=== PATIENT | female | born 1950 | race Caucasian/White ===

== ENCOUNTER 2022-11-07 00:24 | Inpatient (IN) | payer MEDICARE, BC, SELFPAY ==
[2022-11-07] VITALS (332 sets, daily range): BP systolic 97–165; BP diastolic 31–124; PULSE 56–113; RESP 7–26; TEMP 35.8–36.9; O2SAT 90–100; BMI 26.6
--- NOTE | 2022-11-07 00:29 | ED.GENADUL_ITS ---
Discharge Plan Disposition Patient Disposition: Admit to [facility] Condition: Stable Discharge Details Clinical Impression: Left femoral shaft fracture Admit Date/Time: 11/07/22 17:36 Admit Provider: José Luis Gaxiola Attending Provider: José Luis Gaxiola Primary Care Provider: Delaney Apple ED Provider: Rachel Benedict Discharge Data Discharge Date/Time-TO BE ENTERED AT DEPARTURE: 11/07/22 15:01 Medical Decision Making 72-year-old female with history of osteoporosis, Metzger's esophagus, asthma who uses a walker for ambulation at home presents with sudden onset of left thigh pain with concern for fracture while walking and turning to the side with her walker at home at 10 PM last night. Vitals within normal limits. Patient has significant tenderness and edema noted to her left mid thigh and severe pain in her left thigh with any movement. She is in a traction splint. Her distal pulses are intact. There are no obvious open wounds. Her chest and abdomen are nontender. No evidence of head trauma. Moving all other extremities without pain or deformity. Will refer for left hip and pelvis, femur, knee and tib-fib x-rays. Imaging reviewed. She has a displaced mid left femur fracture. Case discussed and imaging reviewed with Dr. Justin who notes that this is likely a fracture in the setting of osteoporosis similar to a classic bisphosphonate fracture. Recommends removal of the traction splint here and place patient in Rahman's traction which I did at bedside and pt tolerated well. Dr. Justin likely can take patient to the OR later today. Discussed with nursing fiber optics supervisor and there are currently no beds available here and no beds available at [facility]. Discussed with community integration specialist and there are no beds available at [facility] or [facility]. Plan to admit patient here and board in the ER once bed available. Case discussed with hospitalist who accepts pt for admission. Medical Records Medical records reviewed: Yes I reviewed the patient's medical records. Imaging Data Radiologic Study: Radiologist's impression: XR Left Hip Exam date and time: 11/07/2022 1:27 AM Age: 72 years old Clinical indication: Injury or trauma; Blunt trauma (contusions or hematomas); Left; Hip; Injury details: S/P fall, R/O FX TECHNIQUE: Imaging protocol: Radiologic exam of the Left hip. Views: 2 or 3 views hip with pelvis when performed. COMPARISON: No relevant prior studies available. FINDINGS: Bones/joints: Acute, angulated, displaced transverse fracture through proximal shaft of the femur. No subluxation. Intramedullary adonis right femur. Degenerative changes of visualized spine Soft tissues: Unremarkable. IMPRESSION: Acute fracture of left femur. ?XR Left Femur Exam date and time: 11/07/2022 1:29 AM Age: 72 years old Clinical indication: Injury or trauma; Fall; Work related; Blunt trauma; Thigh or upper leg; Left; Additional info: S/P fall, R/O FX TECHNIQUE: Imaging protocol: Radiologic exam of the Left femur. Views: 2 views. COMPARISON: CR XR HIP LT COMPLETE AP PELVIS 11/07/2022 1:27 AM FINDINGS: Bones/joints: Acute, displaced angulated transverse fracture through proximal shaft of the femur. Hip and knee joints maintained. Soft tissues: Unremarkable. IMPRESSION: Acute fracture of the femur. XR Left Knee Exam date and time: 11/07/2022 1:30 AM Age: 72 years old Clinical indication: Injury or trauma; Fall; Blunt trauma; Knee; Left; Additional info: S/P fall, R/O FX TECHNIQUE: Imaging protocol: Radiologic exam of the Left knee. Views: 1 or 2 views. COMPARISON: CR XR FEMUR LT 11/07/2022 1:29 AM FINDINGS: Bones/joints: No fracture or subluxation. Soft tissues: Normal. IMPRESSION: No fracture or subluxation. XR Left Tibia and Fibula Exam date and time: 11/07/2022 1:32 AM Age: 72 years old Clinical indication: Injury or trauma; Fall; Work related; Blunt trauma; Knee; Left; Additional info: S/P fall, R/O FX TECHNIQUE: Imaging protocol: Radiologic exam of the Left tibia and fibula. Views: 2 views. COMPARISON: CR XR KNEE LT 3V AP,LAT,GURJIT 11/07/2022 1:30 AM, concurrent x-ray study of the left femur. FINDINGS: Bones/joints: No acute fracture or subluxation. Knee and ankle joints are maintained. Soft tissues: Normal. IMPRESSION: No acute fracture or subluxation. XR Chest Exam date and time: 11/07/2022 1:39 AM Age: 72 years old Clinical indication: Injury or trauma; Fall; Blunt trauma (contusions or hematomas); Additional info: Left femur FX, pre-op, R/O acute disease TECHNIQUE: Imaging protocol: Radiologic exam of the chest. Views: 1 view. COMPARISON: No relevant prior studies available. FINDINGS: Lungs: Unremarkable. No consolidation. Pleural spaces: Unremarkable. No pleural effusion. No pneumothorax. Heart/Mediastinum: Cardiomegaly. Bones/joints: Moderate convex right scoliosis of thoracolumbar spine. Multilevel degenerative changes. IMPRESSION: Cardiomegaly. Lab Data Lab results reviewed: Yes I reviewed the patient's lab results. Labs: Laboratory Tests Range/Units 11/07/22 11/07/22 11/07/22 04:05 04:05 04:05 WBC (4.4-10.8) 10^3/uL 11.78 H RBC (3.93-5.22) 10^6/uL 3.69 L Hgb (11.2-15.7) g/dL 11.6 Hct (36.0-46.0) % 35.8 L MCV (80-95) fL 97 H MCH (27.0-33.0) pg 31.4 MCHC (32.0-36.0) % 32.4 RDW (11.7-14.6) % 13.2 Plt Count (130-400) 10^3/uL 249 MPV (8.0-11.0) fL 10.6 Immature Gran % 0.3 Neutrophils % 82.3 Lymphocytes % 10.8 Monocytes % 5.0 Eosinophils % 1.2 Basophils % 0.4 Nucleated RBC % (0.0-0.3) % 0.0 Absolute Neutrophils (1.2-6.7) 10^3/uL 9.69 H Absolute Lymphocytes (1.2-3.4) 10^3/uL 1.27 Absolute Monocytes (0.1-0.8) 10^3/uL 0.59 Absolute Eosinophils (0.0-0.7) 10^3/uL 0.14 Absolute Basophils (0.0-0.2) 10^3/uL 0.05 Sodium (136-145) mmol/L 138 Potassium (3.5-5.1) mmol/L 4.0 Chloride (98-107) mmol/L 105 Carbon Dioxide (21.0-32.0) mmol/L 26.7 Anion Gap (3-11) mmol/L 6.3 BUN (7-18) mg/dL 30 H Creatinine (0.55-1.02) mg/dL 1.1 H Est GFR (CKD-EPI 2020) (mL/min/1.73m2) 52.73 Glucose (74-106) mg/dL 151 H Calcium (8.5-10.1) mg/dL 8.8 Total Bilirubin (0.2-1.0) mg/dL 0.2 AST (15-37) U/L 19 ALT (14-59) U/L 25 Alkaline Phosphatase (46-116) U/L 58 Total Protein (6.4-8.2) g/dL 6.3 L Albumin (3.4-5.0) g/dL 3.2 L COVID-19 Source Nasal/Nares SARS-CoV-2 (PCR) (Negative) Negative ECG Data Attestation: I personally reviewed and interpreted this ECG (s) as follows: Interpretation: rate of 62, sinus, no stemi. HPI General Mode of arrival: ambulatory . Date/Time Provider Initiated Documentation: 11/07/22 00:29 . Limitations to Documentation: no limitations . Information obtained by: patient . HPI Narrative: Patient is a 72-year-old female with a history of osteoporosis, Metzger's esophagus, asthma who uses a walker at home for ambulation presents for left thigh pain with concern for femur fracture after she twisted while walking at 10 PM last night. Patient states she was walking in her bedroom when she turned around and felt an instant snap in her left thigh. She states she has nursing staff at home that was able to help her to the recliner. She denies head injury, chest pain, abdominal pain, neck pain, back pain or other extremity injury or pain. She states her pain is controlled after fentanyl per EMS. Patient states she has a history of right femur fracture with intramedullary adonis placement in 2005. Related Data Home Medications Medication Instructions Recorded Confirmed Calcium Magnesium + D 500 mg-250 1 ea PO 11/20/15 mg-200 unit tablet (calcium carb,[id number]) Daily Value (multivitamin) 1 ea PO DAILY 11/20/15 11/07/22 ProAir HFA 90 mcg/actuation 1 puff inhalation Q6H PRN 11/20/15 11/07/22 aerosol inhaler (albuterol sulfate) Qvar 40 mcg/actuation Metered 2 puff inhalation BID 11/20/15 11/07/22 Aerosol oral inhaler (beclomethasone dipropionate) Vitamin C 500 mg capsule,extended 500 mg PO DAILY ##2 11/20/15 11/07/22 release (ascorbic acid (vitamin C)) bupropion HCl 300 mg 24 hr tablet, 300 mg PO DAILY 11/20/15 11/07/22 extended release melatonin 10 mg tablet,extended 10 mg PO HS 11/20/15 11/07/22 release montelukast 10 mg tablet 10 mg PO DAILY 11/20/15 11/07/22 omeprazole 40 mg capsule,delayed 40 mg PO DAILY 11/20/15 11/07/22 release Cbd Oral Edibles PO DAILY 11/07/22 acetaminophen 500 mg tablet 1,000 mg PO BID 11/07/22 11/07/22 aspirin 81 mg tablet,delayed 81 mg PO DAILY 11/07/22 11/07/22 release denosumab 60 mg/mL subcutaneous 60 mg subcut 11/07/22 syringe (Prolia) ferrous gluconate 324 mg (37.5 mg 324 mg PO DAILY 11/07/22 11/07/22 iron) tablet gabapentin 600 mg tablet 600 mg PO QID 11/07/22 11/07/22 hyoscyamine sulfate 0.125 mg 0.125 mg PO PRN 11/07/22 sublingual tablet lisinopril 5 mg tablet 5 mg PO DAILY 11/07/22 11/07/22 lorazepam 0.5 mg tablet 0.5 mg PO 11/07/22 meloxicam 15 mg tablet 15 mg PO DAILY 11/07/22 11/07/22 methocarbamol 750 mg tablet 750 mg PO BID PRN 11/07/22 11/07/22 metoprolol succinate 25 mg 25 mg PO DAILY 11/07/22 11/07/22 tablet,extended release 24 hr oxybutynin chloride 5 mg tablet 5 mg PO DAILY 11/07/22 11/07/22 Allergies Allergy/AdvReac Type Severity Reaction Status Date / Time codeine Allergy Unverified 11/07/22 00:31 Tetracyclines Allergy Unverified 11/07/22 00:31 General Stated Complaint: Orthopedic MARIANNE: 3 Review of Systems All systems reviewed & are unremarkable except as noted in HPI and below Constitutional Constitutional: Reports as per HPI, Denies chills and Denies fever(s) Eyes Eyes: Denies blurry vision ENT Ears, Nose, Mouth, and Throat: Denies dizziness, Denies sore throat and Denies throat swelling Cardiovascular Cardiovascular: Denies chest pain and Denies dyspnea Respiratory Respiratory: Denies cough and Denies dyspnea Gastrointestinal Gastrointestinal: Denies abdominal pain, Denies diarrhea and Denies vomiting Genitourinary Genitourinary: Denies hematuria and Denies dysuria Musculoskeletal Musculoskeletal: Denies back pain and Denies numbness Comments: Left thigh and knee pain Integumentary/Breasts Skin/Breast: Denies lesions and Denies rash Neurologic Neurologic: Denies dizziness, Denies localized weakness and Denies numbness Allergic/Immunologic Allergic/Immunologic: Denies throat swelling PFSH All Active Problems (Updated 11/09/22 @ 16:56 by Abena Pederson NP) UTI (urinary tract infection) (Acute) Discharge planning issues (Acute) DVT prophylaxis (Acute) Left femoral shaft fracture (Acute 11/06/22) Medical History (Updated 11/09/22 @ 16:56 by Abena Pederson NP) Allergic rhinitis due to pollen (06/30/16) Asthma Barretts esophagus Diverticulosis Dysphagia HTN (hypertension) Insomnia Osteoporosis Surgical History Colonoscopy - MAC (08/19/17) 2007 EGD - IV Sedation intramedulary nail right femoral bone Family History Other Essential hypertension Stroke Social History Smoking/Tobacco Use Status: Never Smoking risk assessment performed?: Yes Alcohol Intake: never Substance use type: does not use Exam Const General: cooperative and uncomfortable Orientation: alert, awake and oriented x3 HENMT Head: normal to inspection Eyes General: appearance normal, both eyes and all related structures Pupils: PERRL EOM: EOM intact bilaterally Neck Neck: normal visual inspection and No submandibular swelling Lymphatic: no lymphadenopathy noted Chest Chest: normal inspection of the chest, normal palpation of entire chest wall and no tenderness Resp Effort & Inspection: normal respiratory effort and able to speak in complete sentences Auscultation: clear to auscultation bilaterally Cardio Rate: regular rate Rhythm: regular rhythm GI Inspection: normal to inspection Palpation: soft, not firm, not rigid and nontender Auscultation: hypoactive bowel sounds Skin General skin exam: no rashes or lesions noted Neuro General: patient alert, patient awake and patient oriented x3 Cognition: normal cognition Speech: speech normal Motor: muscle tone normal throughout Sensory Exam: no sensory deficits noted Extrem Other: Left lower extremity in traction splint. She has significant tenderness and edema noted to the left mid thigh and severe pain in her left thigh with any movement. There are no obvious open wounds noted. Left knee, tib-fib and lower leg appears normal to inspection. Left ankle and foot nontender. Left DP pulse intact. No pain with anterior posterior compression of bilateral hips. No pain with range of motion in bilateral upper extremities. Psych Appearance: grossly normal Mental Status: mental status grossly normal Speech and Movement: speech and movement normal Affect: normal affect Procedures Orthopedic Splinting/Casting Injury #1: Side: left Lower Extremity Injury Location: upper leg Other Orthopedic Equipment: other (stockingette placed on left lower leg and wrapped in coban. The excess stockingette off the distal end of the foot was then tied to a 5 lb weight hanging over the distal end of the bed. )
--- NOTE | 2022-11-07 01:00 | DI.RAD_ITS ---
Exam(s) XR TIB/FIB LT XR KNEE LT 2V AP,LAT EXAM: XR KNEE LT 2V AP,LAT CLINICAL HISTORY: s/p fall with twisting injury, r/o fx. TECHNIQUE: 2D digital imaging was performed. AP and lateral views COMPARISON: CR,XR XR TIB/FIB LT from 11/07/2022 CR,XR XR FEMUR LT from 11/07/2022 FINDINGS: BONES: No acute fracture is present. No bony destructive lesion is seen. JOINTS: Degenerative changes lateral femoral tibial joint. The knee is normally aligned. No joint ef fusion is seen. Ankle joint is unremarkable. SOFT TISSUE: Normal. IMPRESSION: Normal radiographs of the left knee and lower leg.. DATA REPOSITORY: RADIATION DOSE DELIVERED:
--- NOTE | 2022-11-07 01:00 | DI.RAD_ITS ---
Exam(s) XR HIP LT COMPLETE AP PELVIS XR FEMUR LT EXAM: XR HIP LT COMPLETE AP PELVIS INDICATION: s/p fall, r/o acute fx. COMPARISON: CR,XR XR FEMUR LT from 11/07/2022 TECHNIQUE: 2D digital imaging was performed. Three views. FINDINGS: There is a fracture seen extending transversely through the upper shaft of the femur, well below the lesser trochanter. There is a full shaft with displacement as well as severe angulation. The hip shelley int and pelvis appear intact. An intramedullary adonis is noted in the right femur. No additional frac tures are seen distally in the femur. The knee is unremarkable. IMPRESSION: Displaced and angulated fracture of the proximal shaft of the left femur. DATA REPOSITORY: RADIATION DOSE DELIVERED:
--- NOTE | 2022-11-07 01:30 | DI.RAD_ITS ---
Exam(s) XR CHEST 1V IN DI DEPT EXAM: XR CHEST 1V IN DI DEPT CLINICAL HISTORY: left femur fx, pre-op, r/o acute disease TECHNIQUE: 2D digital imaging was performed. COMPARISON: No exams were available for comparison FINDINGS: Leads overlie the chest. Exam limited by rotation. LUNGS: Grossly clear. No pleural abnormality seen. HEART: Enlarged. The left lower lobe is partially obscured by cardiac silhouette.. AORTA: Normal diameter. Calcification at arch. BONES: Prominent dextroscoliosis. Soft tissues: Unremarkable. IMPRESSION: Cardiomegaly. No acute findings. DATA REPOSITORY: RADIATION DOSE DELIVERED:
--- NOTE | 2022-11-07 01:30 | RT.EKG_ITS ---
APPROVED REPORT Exam: Resting ECG Reason for Exam: pre-op Patient Location: E HR:62 bpm ECG Measurements Heart Rate 62 AXIS UT 165 P 63 QRSd 90 QRS -48 QT 443 T 43 QTc 449 Conclusion Sinus rhythm...normal P axis, V-rate 60- 99 Probable left atrial enlargement...P >50mS, <-0.10mV V1 Left anterior fascicular block...axis(240,-40), init forces inf. Sinus. No STEMI. I have reviewed and interpreted ECG and agree with software generated interpretation.
[2022-11-07] MEDS: fentaNYL 100 MCG/2 ML VIAL 50 MCG IVP ×2 (01:45→11:41)
[2022-11-07] MEDS: fentaNYL 100 MCG/2 ML VIAL (02:00)
[2022-11-07] MEDS: diazePAM 10 MG/2 ML SYR 2 MG IVP (03:05)
--- NOTE | 2022-11-07 04:09 | DI.VRAD_ITS ---
PROCEDURE INFORMATION: Exam: XR Left Hip Exam date and time: 11/07/2022 1:27 AM Age: 72 years old Clinical indication: Injury or trauma; Blunt trauma (contusions or hematomas); Left; Hip; Injury details: S/P fall, R/O FX TECHNIQUE: Imaging protocol: Radiologic exam of the Left hip. Views: 2 or 3 views hip with pelvis when performed. COMPARISON: No relevant prior studies available. FINDINGS: Bones/joints: Acute, angulated, displaced transverse fracture through proximal shaft of the femur. No subluxation. Intramedullary adonis right femur. Degenerative changes of visualized spine Soft tissues: Unremarkable. IMPRESSION: Acute fracture of left femur. Dictated and Authenticated by: Cale Rhodes MD. Ordering:CLIFTON Ramos MD
[2022-11-07 04:14] LABS: Source Nasal/Nares
--- NOTE | 2022-11-07 04:15 | DI.VRAD_ITS ---
PROCEDURE INFORMATION: Exam: XR Left Femur Exam date and time: 11/07/2022 1:29 AM Age: 72 years old Clinical indication: Injury or trauma; Fall; Work related; Blunt trauma; Thigh or upper leg; Left; Additional info: S/P fall, R/O FX TECHNIQUE: Imaging protocol: Radiologic exam of the Left femur. Views: 2 views. COMPARISON: CR XR HIP LT COMPLETE AP PELVIS 11/07/2022 1:27 AM FINDINGS: Bones/joints: Acute, displaced angulated transverse fracture through proximal shaft of the femur. Hip and knee joints maintained. Soft tissues: Unremarkable. IMPRESSION: Acute fracture of the femur. Dictated and Authenticated by: Cale Rhodes MD. Ordering:CLIFTON Ramos MD
[2022-11-07 04:16] LABS: Abs Immature Grans 0.03 10^3/uL (0.0-0.06); Absolute Basophil Count 0.05 10^3/uL (0.0-0.2); Absolute Eosinophil Count 0.14 10^3/uL (0.0-0.7); Absolute Lymphocyte Count 1.27 10^3/uL (1.2-3.4); Absolute Monocyte Count 0.59 10^3/uL (0.1-0.8); Basophils % 0.4; Eosinophils % 1.2; HCT 35.8 % (36.0-46.0); HGB 11.6 g/dL (11.2-15.7); Immature Grans % 0.3; Lymphocytes % 10.8; MCH 31.4 pg (27.0-33.0); MCHC 32.4 % (32.0-36.0); MCV 97 fL (80-95); MPV 10.6 fL (8.0-11.0); Neutrophils % 82.3; Platelet Count 249 10^3/uL (130-400); RBC 3.69 10^6/uL (3.93-5.22); RDW 13.2 % (11.7-14.6); RDW-SD 46.7 fL; WBC 11.78 10^3/uL (4.4-10.8)
--- NOTE | 2022-11-07 04:16 | DI.VRAD_ITS ---
PROCEDURE INFORMATION: Exam: XR Left Knee Exam date and time: 11/07/2022 1:30 AM Age: 72 years old Clinical indication: Injury or trauma; Fall; Blunt trauma; Knee; Left; Additional info: S/P fall, R/O FX TECHNIQUE: Imaging protocol: Radiologic exam of the Left knee. Views: 1 or 2 views. COMPARISON: CR XR FEMUR LT 11/07/2022 1:29 AM FINDINGS: Bones/joints: No fracture or subluxation. Soft tissues: Normal. IMPRESSION: No fracture or subluxation. Dictated and Authenticated by: Cale Rhodes MD. Ordering:CLIFTON Ramos MD
--- NOTE | 2022-11-07 04:17 | DI.VRAD_ITS ---
PROCEDURE INFORMATION: Exam: XR Left Tibia and Fibula Exam date and time: 11/07/2022 1:32 AM Age: 72 years old Clinical indication: Injury or trauma; Fall; Work related; Blunt trauma; Knee; Left; Additional info: S/P fall, R/O FX TECHNIQUE: Imaging protocol: Radiologic exam of the Left tibia and fibula. Views: 2 views. COMPARISON: CR XR KNEE LT 3V AP,LAT,GURJIT 11/07/2022 1:30 AM, concurrent x-ray study of the left femur. FINDINGS: Bones/joints: No acute fracture or subluxation. Knee and ankle joints are maintained. Soft tissues: Normal. IMPRESSION: No acute fracture or subluxation. Dictated and Authenticated by: Cale Rhodes MD. Ordering:CLIFTON Ramos MD
--- NOTE | 2022-11-07 04:19 | DI.VRAD_ITS ---
PROCEDURE INFORMATION: Exam: XR Chest Exam date and time: 11/07/2022 1:39 AM Age: 72 years old Clinical indication: Injury or trauma; Fall; Blunt trauma (contusions or hematomas); Additional info: Left femur FX, pre-op, R/O acute disease TECHNIQUE: Imaging protocol: Radiologic exam of the chest. Views: 1 view. COMPARISON: No relevant prior studies available. FINDINGS: Lungs: Unremarkable. No consolidation. Pleural spaces: Unremarkable. No pleural effusion. No pneumothorax. Heart/Mediastinum: Cardiomegaly. Bones/joints: Moderate convex right scoliosis of thoracolumbar spine. Multilevel degenerative changes. IMPRESSION: Cardiomegaly. Dictated and Authenticated by: Cale Rhodes MD. Ordering:CLIFTON Ramos MD
[2022-11-07 04:24] LABS: Absolute Neutrophil Count 9.69 10^3/uL (1.2-6.7)
[2022-11-07 04:32] LABS: ALT 25 U/L (14-59); AST 19 U/L (15-37); Albumin 3.2 g/dL (3.4-5.0); Alkaline Phosphatase 58 U/L (46-116); Anion Gap 6.3 mmol/L (3-11); BUN 30 mg/dL (7-18); Bilirubin, Total 0.2 mg/dL (0.2-1.0); CO2 26.7 mmol/L (21.0-32.0); CREATININE 1.1 mg/dL (0.55-1.02); Calcium 8.8 mg/dL (8.5-10.1); Chloride 105 mmol/L (98-107); Estimated GFR 52.73 (mL/min/1.73m2); Glucose 151 mg/dL (74-106); Sodium 138 mmol/L (136-145); Total Protein 6.3 g/dL (6.4-8.2)
[2022-11-07 04:53] LABS: COVID-19 PCR Negative (Negative)
--- NOTE | 2022-11-07 05:50 | W.PM.HP.N ---
Date of service: 11/07/22 Time of Service: 05:50 Assessment and Plan Assessment and plan (1) Left femoral shaft fracture: Start date: 11/07/22 Status: Acute Assessment and plan: This is 72-year-old lady who had a spontaneous fracture left proximal femur shaft with previous right femur shaft fracture with adonis in place. She has severe osteoporosis. She will be kept him n.p.o. with pain management and Rahman's traction awaiting surgical repair with Dr. Justin consulted. She is a full code. (2) HTN (hypertension): Assessment and plan: This appears stable with patient on lisinopril and metoprolol at home. She will not receive lisinopril and metoprolol will be in split dosing slightly increase if needed perioperatively. She will hold her aspirin. (3) Osteoporosis: Assessment and plan: Severe with spontaneous fractures on Prolia. History of Present Illness History of Present Illness Chief Complaint: Left thigh pain after turning with walking Narrative: This is a 72-year-old female patient with a history of osteoporosis on Prolia injections as well as asthma on inhalers and hypertension on blood pressure medications. She has severe pain with DJD and was walking with a walker when she turned and felt a snap in her left thigh and then saw her leg moving independently from the upper thigh. She had an attendant who helped her get comfortable and she came to the ED for evaluation being found to have a mid left femur shaft fracture. She had had this happen before on her other leg. There was no fall or injury. In the ED the patient was evaluated with no other fractures of the left lower extremity and Dr. Justin was consulted advising Rahman's traction with patient having a Bernstein catheter in place and being kept comfortable with IV fentanyl. At the time I saw the patient she was comfortable and making a phone call on her cell phone. She usually goes to [facility] but that hospital was on diversion prompting transfer to [facility]. She is a full code. Review of Systems Narrative: 13 point review of systems otherwise unrevealing or stable. PFSH All Active Problems (Updated 11/07/22 @ 06:43 by José Luis Gaxiola) Left femoral shaft fracture (Acute) Medical History (Updated 11/07/22 @ 06:43 by José Luis Gaxiola) Asthma Barretts esophagus Diverticulosis Dysphagia HTN (hypertension) Insomnia Osteoporosis Surgical History Colonoscopy - MAC (08/19/17) 2006 EGD - IV Sedation intramedulary nail right femoral bone Family History Other Essential hypertension Stroke Social History Smoking/Tobacco Use Status: Never Smoking risk assessment performed?: Yes Alcohol Intake: never Substance use type: does not use Meds Allergies and Home Medications Allergies Allergy/AdvReac Type Severity Reaction Status Date / Time codeine Allergy Unverified 11/07/22 00:31 Tetracyclines Allergy Unverified 11/07/22 00:31 Home Medications Medication Instructions Recorded Confirmed Type Calcium Magnesium + D 500 mg-250 1 ea PO 11/20/15 History mg-200 unit tablet (calcium carb,[id number] D3) Daily Value (multivitamin) 1 ea PO DAILY 11/20/15 11/07/22 History ProAir HFA 90 mcg/actuation 1 puff inhalation Q6H PRN 11/20/15 11/07/22 History aerosol inhaler (albuterol sulfate) Qvar 40 mcg/actuation Metered 2 puff inhalation BID 11/20/15 11/07/22 History Aerosol oral inhaler (beclomethasone dipropionate) Vitamin C 500 mg capsule,extended 500 mg PO DAILY ##2 11/20/15 11/07/22 History release (ascorbic acid (vitamin C)) bupropion HCl 300 mg 24 hr tablet, 300 mg PO DAILY 11/20/15 11/07/22 History extended release melatonin 10 mg tablet,extended 10 mg PO HS 11/20/15 11/07/22 History release montelukast 10 mg tablet 10 mg PO DAILY 11/20/15 11/07/22 History omeprazole 40 mg capsule,delayed 40 mg PO DAILY 11/20/15 11/07/22 History release Cbd Oral Edibles PO DAILY 11/07/22 History acetaminophen 500 mg tablet 1,000 mg PO BID 11/07/22 11/07/22 History aspirin 81 mg tablet,delayed 81 mg PO DAILY 11/07/22 11/07/22 History release denosumab 60 mg/mL subcutaneous 60 mg subcut 11/07/22 History syringe (Prolia) ferrous gluconate 324 mg (37.5 mg 324 mg PO DAILY 11/07/22 11/07/22 History iron) tablet gabapentin 600 mg tablet 600 mg PO QID 11/07/22 11/07/22 History hyoscyamine sulfate 0.125 mg 0.125 mg PO PRN 11/07/22 History sublingual tablet lisinopril 5 mg tablet 5 mg PO DAILY 11/07/22 11/07/22 History lorazepam 0.5 mg tablet 0.5 mg PO 11/07/22 History meloxicam 15 mg tablet 15 mg PO DAILY 11/07/22 11/07/22 History methocarbamol 750 mg tablet 750 mg PO BID PRN 11/07/22 11/07/22 History metoprolol succinate 25 mg 25 mg PO DAILY 11/07/22 11/07/22 History tablet,extended release 24 hr oxybutynin chloride 5 mg tablet 5 mg PO DAILY 11/07/22 11/07/22 History Exam Narrative Exam Narrative: General: Patient appears appropriate for age, alert and oriented x3 and in no acute distress. She is comfortable lying flat in bed in Rahman's traction. HEENT: Normocephalic, eyes with pupils equal reactive light symmetrically, extraocular movement intact and sclera anicteric. Oropharynx with moist mucosa and good dentition. Neck: Supple without JVD. Back: Not examined with patient supine. Lungs: Clear to auscultation and percussion with anterior evans auscultated. Breast: Exam deferred. Heart: Irregular rhythm with normal rate, frequent extrasystole. 3-6 systolic murmur left sternal border. Abdomen: Slightly obese contour, soft and nontender to palpation with no palpable hepatosplenomegaly. Bowel sounds positive all quadrants. Genitalia/rectal: Exam deferred. Patient has Bernstein catheter in place. Extremities: Without clubbing, cyanosis or pitting edema. Left thigh is tender with movement and is in Rahman's traction. Peripheral pulses intact with good cap refill. Skin: Normal color, warm and dry. Neuro: Cranial nerves II through XII gross intact, no focalized motor deficits. No tremor. Psych: Normal affect and mood. No abnormal thought processes. Remote and recent memory intact. Results Imaging Imaging Studies: Exam: XR Left Hip Exam date and time: 11/07/2022 1:27 AM Age: 72 years old Clinical indication: Injury or trauma; Blunt trauma (contusions or hematomas); Left; Hip; Injury details: S/P fall, R/O FX TECHNIQUE: Imaging protocol: Radiologic exam of the Left hip. Views: 2 or 3 views hip with pelvis when performed. COMPARISON: No relevant prior studies available. FINDINGS: Bones/joints: Acute, angulated, displaced transverse fracture through proximal shaft of the femur. No subluxation. Intramedullary adonis right femur. Degenerative changes of visualized spine Soft tissues: Unremarkable. IMPRESSION: Acute fracture of left femur. Exam: XR Left Femur Exam date and time: 11/07/2022 1:29 AM Age: 72 years old Clinical indication: Injury or trauma; Fall; Work related; Blunt trauma; Thigh or upper leg; Left; Additional info: S/P fall, R/O FX TECHNIQUE: Imaging protocol: Radiologic exam of the Left femur. Views: 2 views. COMPARISON: CR XR HIP LT COMPLETE AP PELVIS 11/07/2022 1:27 AM FINDINGS: Bones/joints: Acute, displaced angulated transverse fracture through proximal shaft of the femur. Hip and knee joints maintained. Soft tissues: Unremarkable. IMPRESSION: Acute fracture of the femur. Exam: XR Left Knee Exam date and time: 11/07/2022 1:30 AM Age: 72 years old Clinical indication: Injury or trauma; Fall; Blunt trauma; Knee; Left; Additional info: S/P fall, R/O FX TECHNIQUE: Imaging protocol: Radiologic exam of the Left knee. Views: 1 or 2 views. COMPARISON: CR XR FEMUR LT 11/07/2022 1:29 AM FINDINGS: Bones/joints: No fracture or subluxation. Soft tissues: Normal. IMPRESSION: No fracture or subluxation. Exam: XR Left Tibia and Fibula Exam date and time: 11/07/2022 1:32 AM Age: 72 years old Clinical indication: Injury or trauma; Fall; Work related; Blunt trauma; Knee; Left; Additional info: S/P fall, R/O FX TECHNIQUE: Imaging protocol: Radiologic exam of the Left tibia and fibula. Views: 2 views. COMPARISON: CR XR KNEE LT 3V AP,LAT,GURJIT 11/07/2022 1:30 AM, concurrent x-ray study of the left femur. FINDINGS: Bones/joints: No acute fracture or subluxation. Knee and ankle joints are maintained. Soft tissues: Normal. IMPRESSION: No acute fracture or subluxation. Exam: XR Chest Exam date and time: 11/07/2022 1:39 AM Age: 72 years old Clinical indication: Injury or trauma; Fall; Blunt trauma (contusions or hematomas); Additional info: Left femur FX, pre-op, R/O acute disease TECHNIQUE: Imaging protocol: Radiologic exam of the chest. Views: 1 view. COMPARISON: No relevant prior studies available. FINDINGS: Lungs: Unremarkable. No consolidation. Pleural spaces: Unremarkable. No pleural effusion. No pneumothorax. Heart/Mediastinum: Cardiomegaly. Bones/joints: Moderate convex right scoliosis of thoracolumbar spine. Multilevel degenerative changes. IMPRESSION: Cardiomegaly. Labs Result diagrams: 11/07/22 04:05 11/07/22 04:05 Labs: Laboratory Results - last 24 hr 11/07/22 11/07/22 11/07/22 04:05 04:05 04:05 WBC 11.78 H RBC 3.69 L Hgb 11.6 Hct 35.8 L MCV 97 H MCH 31.4 MCHC 32.4 RDW 13.2 Plt Count 249 MPV 10.6 Immature Gran % 0.3 Neutrophils % 82.3 Lymphocytes % 10.8 Monocytes % 5.0 Eosinophils % 1.2 Basophils % 0.4 Nucleated RBC % 0.0 Absolute Neutrophils 9.69 H Absolute Lymphocytes 1.27 Absolute Monocytes 0.59 Absolute Eosinophils 0.14 Absolute Basophils 0.05 Sodium 138 Potassium 4.0 Chloride 105 Carbon Dioxide 26.7 Anion Gap 6.3 BUN 30 H Creatinine 1.1 H Est GFR (CKD-EPI 2020) 52.73 Glucose 151 H Calcium 8.8 Total Bilirubin 0.2 AST 19 ALT 25 Alkaline Phosphatase 58 Total Protein 6.3 L Albumin 3.2 L COVID-19 Source Nasal/Nares SARS-CoV-2 (PCR) Negative Last Vital Signs Temp 36.6 C 11/07/22 00:24 Pulse 80 11/07/22 05:32 Resp 15 11/07/22 05:45 BP 126/43 L 11/07/22 05:32 Pulse Ox 93 11/07/22 05:45 Time Spent Time spent with Patient: 55-74 minutes Time was spent: preparing to see the patient(eg.review tests), obtaining and/or reviewing separately otained hiistory, ordering medications,tests, procedures, referring, communicating with other health foster care therapist, indepentently interpreting results and care coordination
--- NOTE | 2022-11-07 06:59 | NUR.NOTE ---
@ 0300 Traction placed on by Dr. Benedict, 5 pounds @ Resting quietly.@ 0600 Resting quietly,denies needs
--- NOTE | 2022-11-07 09:44 | W.ANESPRE ---
General Info Date of Service Date Performed: 11/07/22 Height: 5 ft 1 in Weight: 63.957 kg Body Mass Index (BMI): 26.6 Surgical Procedure: Operation Date: 11/07/22 13:55 Proposed Procedure Side Surgeon p Femur IM Nailing, Antergrade Left Uziel Justin MD Meds Allergies and Home Medications Allergies Allergy/AdvReac Type Severity Reaction Status Date / Time codeine Allergy Unverified 11/07/22 00:31 Tetracyclines Allergy Unverified 11/07/22 00:31 Home Medication Medication Instructions Recorded Calcium Magnesium + D 500 mg-250 1 ea PO 11/20/15 mg-200 unit tablet (calcium carb,[id number] D3) Daily Value (multivitamin) 1 ea PO DAILY 11/20/15 ProAir HFA 90 mcg/actuation 1 puff inhalation Q6H PRN 11/20/15 aerosol inhaler (albuterol sulfate) Qvar 40 mcg/actuation Metered 2 puff inhalation BID 11/20/15 Aerosol oral inhaler (beclomethasone dipropionate) Vitamin C 500 mg capsule,extended 500 mg PO DAILY ##2 11/20/15 release (ascorbic acid (vitamin C)) bupropion HCl 300 mg 24 hr tablet, 300 mg PO DAILY 11/20/15 extended release melatonin 10 mg tablet,extended 10 mg PO HS 11/20/15 release montelukast 10 mg tablet 10 mg PO DAILY 11/20/15 omeprazole 40 mg capsule,delayed 40 mg PO DAILY 11/20/15 release Cbd Oral Edibles PO DAILY 11/07/22 acetaminophen 500 mg tablet 1,000 mg PO BID 11/07/22 aspirin 81 mg tablet,delayed 81 mg PO DAILY 11/07/22 release denosumab 60 mg/mL subcutaneous 60 mg subcut 11/07/22 syringe (Prolia) ferrous gluconate 324 mg (37.5 mg 324 mg PO DAILY 11/07/22 iron) tablet gabapentin 600 mg tablet 600 mg PO QID 11/07/22 hyoscyamine sulfate 0.125 mg 0.125 mg PO PRN 11/07/22 sublingual tablet lisinopril 5 mg tablet 5 mg PO DAILY 11/07/22 lorazepam 0.5 mg tablet 0.5 mg PO 11/07/22 meloxicam 15 mg tablet 15 mg PO DAILY 11/07/22 methocarbamol 750 mg tablet 750 mg PO BID PRN 11/07/22 metoprolol succinate 25 mg 25 mg PO DAILY 11/07/22 tablet,extended release 24 hr oxybutynin chloride 5 mg tablet 5 mg PO DAILY 11/07/22 Current Visit Medications: Current Medications Generic Name Dose Route Start Last Admin Trade Name Freq PRN Reason Stop Dose Admin Acetaminophen 0 mg 11/07/22 05:50 Acetaminophen 325 Mg Tab PO Q4H PRN PRN Al Hydrox/Mg Hydrox/Simethicone 30 ml 11/07/22 05:50 Mylanta Suspension 30 Ml Cup PO Q2H PRN PRN Albuterol Sulfate 1 puff 11/07/22 06:00 Albuterol Hfa 8 Gm 60 Puff Inh IH Q6H PRN JAUN Device 1 each 11/07/22 06:00 Inhaler, Assist Device MC DIRECTED [facility] Dimethicone/Zinc Oxide 0 gm 11/07/22 05:50 Michael Protect Cream 142 Gm Tube TP PRN PRN Docusate Sodium 100 mg 11/07/22 05:50 Docusate Sodium 100 Mg Cap PO TID PRN PRN Fentanyl 50 mcg 11/07/22 03:39 Fentanyl 100 Mcg/2 Ml Vial IVP Q2H PRN PRN Gabapentin 600 mg 11/07/22 08:30 Gabapentin 600 Mg Tab PO QID [facility] Sodium Chloride 500 mls @ 0 mls/hr 11/07/22 03:37 Saline 500ml Bag IV PRN PRN As Directed Sodium Chloride 1,000 mls @ 125 mls/hr 11/07/22 06:00 Saline 1000ml Bag IV INFUSION [facility] Sodium Chloride 1,000 mls @ 150 mls/hr 11/07/22 07:15 Saline 1000ml Bag IV INFUSION [facility] IV Miscellaneous Supplies 1 each 11/07/22 03:45 Iv Access IV DIRECTED [facility] Magnesium Hydroxide 30 ml 11/07/22 05:50 Milk Of Magnesia 30 Ml Cup PO DAILY PRN PRN Meloxicam 15 mg 11/07/22 08:30 Meloxicam 15 Mg Tab PO DAILY [facility] Methocarbamol 750 mg 11/07/22 05:56 Methocarbamol 750 Mg Tab PO BID PRN PRN Metoprolol Tartrate 12.5 mg 11/07/22 06:00 11/07/22 06:30 Metoprolol 12.5 Mg Tab PO Not Given Q8H [facility] Montelukast Sodium 10 mg 11/07/22 08:30 Montelukast 10 Mg Tab PO DAILY [facility] Multivitamins 1 tab 11/07/22 08:30 Multivitamin Tab PO DAILY [facility] Non-Formulary Medication 500 mg 11/07/22 08:30 Ascorbic Acid (Vitamin C) [Vitamin C] PO DAILY [facility] Non-Formulary Medication 2 puff 11/07/22 08:30 Beclomethasone Dipropionate [Qvar] IH BID [facility] Non-Formulary Medication 300 mg 11/07/22 08:30 Bupropion Hcl PO DAILY JAUN Non-Formulary Medication 324 mg 11/07/22 08:30 Ferrous Gluconate PO DAILY [facility] Non-Formulary Medication 10 mg 11/07/22 22:00 Melatonin PO HS [facility] Non-Formulary Medication 40 mg 11/07/22 08:30 Omeprazole PO DAILY [facility] Ondansetron HCl 4 mg 11/07/22 03:37 Ondansetron 4 Mg/2 Ml Vial IVP Q4H PRN PRN Oxybutynin Chloride 5 mg 11/07/22 08:30 Oxybutynin 5 Mg Tab PO DAILY [facility] Polyethylene Glycol 17 gm 11/07/22 05:50 Polyethylene Glycol 3350 17 Gm Packet PO DAILY PRN PRN Constipation PFSH Active Problems Active Problems: Problem Status Onset Code Left femoral shaft fracture 11/06/22 S72.302A Medical History Medical History (Updated 11/07/22 @ 08:38 by Kita Regan) Allergic rhinitis due to pollen (06/30/16) Asthma Barretts esophagus Diverticulosis Dysphagia HTN (hypertension) Insomnia Osteoporosis Surgical History Surgical History Colonoscopy - MAC (08/19/17) 2006 EGD - IV Sedation intramedulary nail right femoral bone Tobacco Smoking/Tobacco Use Status: Never Alcohol Alcohol Intake: never Substance Use Substance use type: does not use Vital Signs and Lab Results Vital Signs Most Recent Vital Signs in EMR: Most Recent Vital Signs Temp Pulse Resp BP Pulse Ox 36.6 C 84 15 145/45 H 95 11/07/22 00:24 11/07/22 06:52 11/07/22 06:52 11/07/22 06:52 11/07/22 06:51 Lab Results Result Diagrams: 11/07/22 04:05 11/07/22 04:05 Blood Type / Crossmatch: No Data to Display Complete Blood Count: White Blood Count 11.78 10^3/uL (4.4-10.8) H 11/07/22 04:05 Red Blood Count 3.69 10^6/uL (3.93-5.22) L 11/07/22 04:05 Hemoglobin 11.6 g/dL (11.2-15.7) 11/07/22 04:05 Hematocrit 35.8 % (36.0-46.0) L 11/07/22 04:05 Platelet Count 249 10^3/uL (130-400) 11/07/22 04:05 Complete Metabolic Panel: Sodium 138 mmol/L (136-145) 11/07/22 04:05 Potassium 4.0 mmol/L (3.5-5.1) 11/07/22 04:05 Chloride 105 mmol/L (98-107) 11/07/22 04:05 Carbon Dioxide 26.7 mmol/L (21.0-32.0) 11/07/22 04:05 BUN 30 mg/dL (7-18) H 11/07/22 04:05 Creatinine 1.1 mg/dL (0.55-1.02) H 11/07/22 04:05 Est GFR (CKD-EPI 2020) 52.73 (mL/min/1.73m2) 11/07/22 04:05 Calcium 8.8 mg/dL (8.5-10.1) 11/07/22 04:05 Albumin 3.2 g/dL (3.4-5.0) L 11/07/22 04:05 Glucose 151 mg/dL (74-106) H 11/07/22 04:05 Liver Function Panel: Alanine Aminotransferase (ALT/SGPT) 25 U/L (14-59) 11/07/22 04:05 Aspartate Amino Transf (AST/SGOT) 19 U/L (15-37) 11/07/22 04:05 Coagulation Panel: No Data to Display Cardiac Panel: No Data to Display Arterial Blood Gas: No Data to Display Venous Blood Gas: No Data to Display Pancreas Panel: No Data to Display Thyroid Panel: No Data to Display Infectious Disease: Coronavirus (COVID-19)(PCR) Negative (Negative) 11/07/22 04:05 Coronavirus 2019 Source Nasal/Nares 11/07/22 04:05 Blood Cultures: No Data to Display Toxicology Panel: No Data to Display Imaging and Studies Imaging and Studies Study information below may be from another EMR and interpreted by another provider. Please see original notes in EMR for more complete details. EKG Summary: 11/07/22: sinus rhythm. Anesthesia Assessment and Plan Anesthesia History Personal History: No History of Anesthesia Complications and Other (sensitive. ) Family History: No Family History of Anesthesia Complications Exercise Tolerance Exercise Tolerance: Metabolic Equivalents>4 Cardiac & Pulmonary Exam Cardiac Exam: Heart Murmur Present (slight systolic murmur left sternal boarder. ) Pulmonary Exam: Clear Bilateral Breath Sounds Implantable Cardiac Device Does patient have a Pacemaker or an ICD?: No Airway Exam Known Difficult Airway: No Mallampati Class: 3 Mouth Opening: Narrow (< 3cm) Thyromental Distance: Greater than 3 cm Neck Range of Motion: Limited ROM Neck Circumference: Normal Teeth Condition: Normal Dentition ASA Classification ASA Score: ASA 3 Emergency Case?: Yes NPO Status NPO Status: NPO Clears >2 hours, Solids >8 hours Anesthesia Plan Resuscitation Status: Full Code Anesthesia Technique: General Anesthesia Airway Planned: Endotracheal Tube Monitors Used: Standard Monitors Preoperative Comments:: 72 yo female with femur fracture. Sig PMHx: HTN (lisinopril, metoprolol), asthma (twice daily inhaler use, occ rescue), dysphagia/GERD (omeprazole - not well controlled), former smoker, palpitations (had Holter, but no concerns per her), TIA x 3 (~ 2015, had vision changes, states unremarkable workup, only on 81 aspirin). Discussed risks, benefits, and alternatives of spinal vs GA. Would prefer GA. Plan: LATOYA, 2nd IV, +/- arterial line.
[2022-11-07] MEDS: Normal Saline 1,000 ML 150 ML IV (11:42)
--- NOTE | 2022-11-07 12:16 | NUR.NOTE ---
Nursing Note: Pt resting more comfortably after receiving pain medication. R knee re-positioned. Does not want to be moved otherwise. Traction on L leg/foot in place. Bernstein emptied. Pt denies any other needs.
[2022-11-07] MEDS: Albuterol HFA 8 GM 60 PUFF INH IH (12:48)
--- NOTE | 2022-11-07 13:15 | DI.RAD_ITS ---
Exam(s) XR FEMUR LT EXAM: XR FEMUR LT CLINICAL HISTORY: LEFT FEMORAL SHAFT FRACTURE. TECHNIQUE: 2D and realtime digital imaging was performed. COMPARISON: CR,XR XR FEMUR LT from 11/07/2022 FINDINGS: Fluoroscopy was provided in the OR. Hard copy images show placement of an intramedullary adonis in the femur for fracture fixation. The alignment is significantly improved from prior. Please see procedure note for details. Fluoro time: 2.44seconds RADIATION DOSE DELIVERED: jose Pacheco=10.92 mGy
--- NOTE | 2022-11-07 13:44 | W.ORTHOCONSU ---
History of Present Illness Narrative: Ms. Saul is a 72-year-old female with PMH of Metzger's esophagus, hypertension, PACs, asthma, significant osteoporosis treated with Prolia injections as well as history of right femur IM nail in 2005. Patient reports last evening around 10 PM she was walking around her home with a walker when she twisted and had immediate pain in the left leg. Patient does report left leg discomfort for several months which she has been starting to work-up with her typical orthopedic practice in [place], [place] and they are planning on obtaining an MRI if she continued to have left leg pain. Due to lack of beds at other hospitals patient was transferred to [facility] for surgical intervention. Patient does report history of cardiac murmur that she was told about years ago but denies any known recent cardiac imaging. Reports history of extra heart beat as well. Denies any cardiac symptoms and typically can function well. 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 Was completed at [facility] in [place], [place] in 2005. Assessment and Plan Assessment and plan (1) Left femoral shaft fracture: Status: Acute Assessment and plan: Plan: Reviewed her recent PCP note and imaging in detail. Reviewed x-rays with patient in detail. She denies any recent Covid-19 infection. Educated patient on surgery covering surgical technique, recovery process, benefits and risks including but not limited to risk of infection, blood clot, damage to soft tissue/blood vessels/nerves, fracture and risk of nonunion in detail. After discussion patient gives verbal understanding of risks and elects to proceed with scheduling surgery. Patient had opportunity to have questions answered to their satisfaction. They will contact office if issues arise. Patient will continue to be scheduled for left femur IM nail and associated procedures with Dr. Justin. Decision to proceed with surgery today left femur closed versus open reduction and intramedullary nailing. Increased risk of bone healing problem given delayed union on contralateral side after what sounds like similar atypical fracture. Increased right side hip thigh and leg pain that is difficult to examine given distracting pain on the left thigh. Will reevaluate after surgery. No obvious deformity or contralateral fractures. Probable increased risk of CVA given intramedullary reaming and prior TIAs. The risks, benefits, and alternatives were thoroughly discussed. Patient was counseled regarding pain management, expected postoperative course, and recovery timeline. All questions were answered. Informed consent was obtained. Patient agrees and understands the treatment plan. Review of Systems Cardiovascular Cardiovascular: Denies chest pain, Denies chest pain at rest, Denies chest pain with activity, Denies rapid heart rate, Denies irregular heart rhythm, Denies palpitations, Denies dyspnea, Denies dyspnea on exertion and Denies slow heart rate Respiratory Respiratory: Denies cough, Denies dyspnea, Denies dyspnea on exertion and Reports wheezing (reports had wheezing several months ago; has not had in recent weeks) Musculoskeletal Musculoskeletal: Denies numbness and Denies tingling Neurologic Neurologic: Denies numbness and Denies tingling Endocrine Endocrine: Denies palpitations Allergic/Immunologic Allergic/Immunologic: Reports wheezing (reports had wheezing several months ago; has not had in recent weeks) PFSH All Active Problems (Updated 11/07/22 @ 08:38 by Kita Regan) Left femoral shaft fracture (Acute 11/06/22) Medical History (Updated 11/07/22 @ 08:38 by Kita Regan) Allergic rhinitis due to pollen (06/30/16) Asthma Barretts esophagus Diverticulosis Dysphagia HTN (hypertension) Insomnia Osteoporosis Surgical History Colonoscopy - MAC (08/19/17) 2006 EGD - IV Sedation intramedulary nail right femoral bone Family History Other Essential hypertension Stroke Social History Smoking/Tobacco Use Status: Never Smoking risk assessment performed?: Yes Alcohol Intake: never Substance use type: does not use Exam Const General: cooperative, healthy appearing and comfortable Orientation: alert and awake Resp Effort & Inspection: normal respiratory effort, able to speak in complete sentences and no cough Cardio Pulses: radial pulses present bilaterally 2+ Extrem Other: Left lower extremity examination: Skin is intact without significant signs of ecchymosis, calor or abrasions. Sensation to light touch is intact along thigh. Lower leg is covered with stockinette and wrapped in coban for Rahman's traction which is in place. Results Last Vital Signs Temp 97.9 F 11/07/22 00:24 Pulse 84 11/07/22 06:52 Resp 15 11/07/22 06:52 BP 145/45 H 11/07/22 06:52 Pulse Ox 95 01/06/23 06:51 Labs Result diagrams: 11/07/22 04:05 11/07/22 04:05 Labs: Laboratory Results - last 24 hr 11/07/22 11/07/22 11/07/22 04:05 04:05 04:05 WBC 11.78 H RBC 3.69 L Hgb 11.6 Hct 35.8 L MCV 97 H MCH 31.4 MCHC 32.4 RDW 13.2 Plt Count 249 MPV 10.6 Immature Gran % 0.3 Neutrophils % 82.3 Lymphocytes % 10.8 Monocytes % 5.0 Eosinophils % 1.2 Basophils % 0.4 Nucleated RBC % 0.0 Absolute Neutrophils 9.69 H Absolute Lymphocytes 1.27 Absolute Monocytes 0.59 Absolute Eosinophils 0.14 Absolute Basophils 0.05 Sodium 138 Potassium 4.0 Chloride 105 Carbon Dioxide 26.7 Anion Gap 6.3 BUN 30 H Creatinine 1.1 H Est GFR (CKD-EPI 2020) 52.73 Glucose 151 H Calcium 8.8 Total Bilirubin 0.2 AST 19 ALT 25 Alkaline Phosphatase 58 Total Protein 6.3 L Albumin 3.2 L COVID-19 Source Nasal/Nares SARS-CoV-2 (PCR) Negative Imaging Imaging Studies: Chest x-ray read by Dr. Rhodes states impression: cardiomegaly Left ankle and knee x-rays were reviewed - joint spaces are well aligned without obvious signs of acute bony abnormality. AP pelvis and left femur x-rays show displaced mid shaft transverse femur fracture. No signs of additional acute bony abnormality. Reviewed [place] [facility] as per read by Dr. Kebede which shows LVEF of 71%. No segmental wall motion abnormalities; trace tricuspid regurgitation, trace pulmonic regurgitation, aortic valve is tricuspid - trace aortic regurgitation and trace mitral regurgitation.
[2022-11-07] MEDS: Lactated Ringers 1,000 ML 30 ML IV (13:55)
[2022-11-07] MEDS: Tranexamic Acid 1,000 MG/10 ML VIAL 1000 MG (14:33)
[2022-11-07] MEDS: Bupivacaine 0.5% Pres-Free W/EPI 30 ML VIAL (16:10)
--- NOTE | 2022-11-07 16:40 | ROE_ITS ---
Date of service: 11/07/22 Time of Service: 14:00 Operative Note Operative Note DATE OF PROCEDURE: 11/07/22 PRE-OP DIAGNOSIS: Left atypical displaced femoral shaft fracture POST-OP DIAGNOSIS: same PROCEDURE: Left femur intramedullary nailing, CPT #75686 SURGEON: Uziel Justin OPERATIONAL RISK CONSULTANT: Yana Carrasco ANESTHESIA TYPE: Local By Surgeon and General LMA/ETT Refer to Anesthesia Record ESTIMATED BLOOD LOSS: 30 COMPLICATIONS: None Patient was transported to: PACU Patient's condition: stable Implants: Synthes antegrade femoral recon nail 10 x 380 mm with 5.0 x 64 mm standard locking proximal and 48 mm distal dynamic locking screws Indications: Please see complete medical record for details. Procedure Description: In the operating room, general anesthesia was induced. The patient was positioned supine on the [place] table. All bony prominences were well-padded. Preoperative antibiotics were administered. The Left thigh was prepped and draped in the usual sterile fashion. The correct patient, procedure, and side of the procedure were all verified prior to incision. 0.5% bupivacaine containing epinephrine was infiltrated about the planned proximal start and later about the standard locking and distal locking sites. The fracture site was evaluated fluoroscopically and manipulated into provisional reduced position using a combination of traction, rotation, depressing the proximal fragment, and elevating the distal fragment. The f emoral neck was scrutinized and there was no fracture. A medium incision was made proximal to the greater trochanter and guidewire placed on the appropriate start site and passed into the proximal femur taking care to confirm appropriate start and trajectory fluoroscopically. The entrance reamer was used to open the proximal femur. The finger was then passed into the proximal segment followed b y the ball tip guidewire. It was advanced to the fracture site. The finger was used to manipulate the proximal fragment into a reduced position and pass the guidewire into the distal fragment and then under fluoroscopic guidance centrally above the knee. The finger was removed. Reduction was optimized with leg positioning on the table, traction, and rotation was scrutinized both grossly and using cortical widths as a guide. The proximal fragment wanted to remain elevated relative to the sag in the distal fragment, but this could be somewhat corrected with direct pressure. There was only up to 25% step-off in this anterior posterior direction and otherwise well reduced immediately laterally. This closed reduction was excepted as opposed to opening the fracture. Next sequential reaming was done taking care to pass the reamers across the fracture site with reduction as maintained as possible. Reaming was done slowly and with anesthesia team aware given significant comorbidities. There was good chatter at size 12 mm. The depth gauge was used to confirm depth. A 10 x 380 mm nail was selected, which would allow full coverage of the femur with enough space distally for dynamization. The nail was assembled and checked on the jig before being passed into the proximal femur over the guidewire. It was carefully directed through the proximal femur using the bow of the nail before carefully passing across the fracture site and rotating into its final position. It was advanced fluoroscopically to the appropriate depth proximally. Space distally was confirmed. Through the jig, a standard greater to lesser trochanter locking screw was placed. The fracture site was inspected. Traction removed from the extremity. Rotation appropriate. The jig was driven distally with the mallet to fully compress as best possible the fracture site. Lastly, a single distal locking screw was placed using perfect circles technique. The screw was carefully placed in the distal most aspect of the oblong screw hole to allow for maximal compression across the fracture as needed. A single screw was chosen given the fairly stable largely transverse fracture pattern and also to allow for immediate dynamization given history of prolonged and delayed healing after a similar atypical fracture on the contralateral side. The jig was removed. Final fluoroscopic images were obtained showing appropriate hardware placement and fracture reduction with the above-mentioned slight step-off anterior posteriorly at the fracture site. The proximal wound and the smaller locking incisions were thoroughly irrigated. Proximal incision subcutaneous tissue was closed using 2-0 Vicryl buried interrupted. The skin for all 3 incision was closed with 3-0 Monocryl buried interrupted. Skin glue was applied over all incisions and allowed to dry before Mepilex Band-Aids were placed on top. The extremities were examined. 2+ dorsalis pedis pulse readily palpable. There was grossly symmetrical resting alignment and rotation. Compartments were soft. The knee was stable. The patient awoke from anesthesia without complication and was transferred to the recovery room in a stable condition.
--- NOTE | 2022-11-07 17:08 | PGE_ITS ---
Date of Service Date of service: 11/07/22 Time of Service: 16:40 Assessment and Plan Assessment and plan (1) Left femoral shaft fracture: Status: Acute Assessment and plan: 72-year-old female postop day #0 status post left femur intramedullary nailing for atypical fracture (due to bisphosphonate use and denosumab) Hold denosumab (Prolia). Started Vitamin D and probiotic. Complete 24 hours postoperative antibiotics Discontinue Bernstein catheter postop day #1 Pain control-Multimodal Physical therapy ordered: Weightbearing as tolerated with assist device May start chemical DVT prophylaxis tomorrow assuming hemodynamically stable: Aspirin 81 mg twice daily x30 days recommended if ambulatory Continue mechanical DVT prophylaxis with SCDs and/or RAZA hose bilaterally I will follow along Discharge when medically appropriate Follow-up with Dr. Justin outpatient [facility] in 2 to 3 weeks Appreciate medical management Subjective Subjective Interval history since last seen: No complaints, still waking up from surgery Exam Narrative Exam Narrative: Resting comfrotably Left thigh bandages clean, dry, and intact Thigh compartments all compressible Demonstrates intact motor out hip, knee, foot, and ankle Sensation grossly intact to light trouch Objective Last Vital Signs Temp 97.9 F 11/07/22 00:24 Pulse 66 11/07/22 13:00 Resp 15 11/07/22 13:10 BP 106/65 11/07/22 13:00 Pulse Ox 96 11/07/22 12:50 Laboratory Results - last 24 hr 11/07/22 11/07/22 11/07/22 04:05 04:05 04:05 WBC 11.78 H RBC 3.69 L Hgb 11.6 Hct 35.8 L MCV 97 H MCH 31.4 MCHC 32.4 RDW 13.2 Plt Count 249 MPV 10.6 Immature Gran % 0.3 Neutrophils % 82.3 Lymphocytes % 10.8 Monocytes % 5.0 Eosinophils % 1.2 Basophils % 0.4 Nucleated RBC % 0.0 Absolute Neutrophils 9.69 H Absolute Lymphocytes 1.27 Absolute Monocytes 0.59 Absolute Eosinophils 0.14 Absolute Basophils 0.05 Sodium 138 Potassium 4.0 Chloride 105 Carbon Dioxide 26.7 Anion Gap 6.3 BUN 30 H Creatinine 1.1 H Est GFR (CKD-EPI 2020) 52.73 Glucose 151 H Calcium 8.8 Total Bilirubin 0.2 AST 19 ALT 25 Alkaline Phosphatase 58 Total Protein 6.3 L Albumin 3.2 L COVID-19 Source Nasal/Nares SARS-CoV-2 (PCR) Negative Time Spent with Patient Time Spent with Patient: <25 minutes Time was spent: preparing to see the patient(eg.review tests), ordering medications,tests, procedures and referring, communicating with other health neonatal critical care nurse
--- NOTE | 2022-11-07 17:30 | W.ANESPOSTOP ---
Postoperative Evaluation Date, Time and Location Date Performed: 11/07/22 Time Performed: 17:30 Patient Location: PACU Vital Signs Most Recent Imported Vital Signs: Most Recent Vital Signs Temp Pulse Resp BP Pulse Ox 36.6 C 56 L 15 132/40 L 98 11/07/22 17:15 11/07/22 17:15 11/07/22 17:15 11/07/22 17:15 11/07/22 17:15 Pain Score Most Recent Pain Score: Most Recent Pain Score Pain Level [Left Upper Thigh/ 10 11/07/22 02:19 Femur] Pain Level 5 11/07/22 16:41 Assessment Mental Status: Awake (Alert & Oriented to Patient Baseline) Airway and Respiratory Function: Patent airway with normal (patient baseline) respiratory exam Cardiovascular Function: Hemodynamically Stable Hydration Status: Adequately Hydrated Nausea & Vomiting: No Nausea or Vomiting Pain: Pain is tolerable per patient Peripheral Nerve Block: Patient did not receive a nerve block
[2022-11-07] MEDS: ceFAZolin 1 GM/50 ML BAG IVPB (18:35)
[2022-11-07] MEDS: Lactated Ringers 1,000 ML 60 ML IV (18:35)
[2022-11-07] MEDS: Ondansetron 4 MG/2 ML VIAL IVP (21:01)
[2022-11-07] MEDS: Normal Saline Flush 10 ML SYR (21:06)
[2022-11-07] MEDS: Normal Saline Flush 10 ML SYR IVP (23:46)
[2022-11-08] VITALS (11 sets, daily range): BP systolic 102–139; BP diastolic 50–75; PULSE 58–83; RESP 14–18; TEMP 37.1–38; O2SAT 93–100
--- NOTE | 2022-11-08 | DI.RAD_ITS ---
Exam(s) XR FEMUR LT EXAM: XR FEMUR LT CLINICAL HISTORY: Postop. TECHNIQUE: 2D digital imaging was performed. Three views. COMPARISON: Intraoperative images November 24 FINDINGS: The intramedullary adonis is noted through the femur for fracture fixation. The alignment appears [employer]. DATA REPOSITORY: RADIATION DOSE DELIVERED:
--- NOTE | 2022-11-08 | DI.RAD_ITS ---
Exam(s) XR FEMUR RT EXAM: XR FEMUR RT CLINICAL HISTORY: Pain. TECHNIQUE: 2D digital imaging was performed. COMPARISON: CR,XR XR HIP LT COMPLETE AP PELVIS from 11/07/2022 FINDINGS: BONES: In intramedullary adonis is noted through the femur. There is an old fracture deformity in the u pper femur. No acute fracture is present. No bony destructive lesion is seen. Degenerative changes a re noted at the knee. There is acetabular spurring of the hip joint. IMPRESSION: No acute fracture. DATA REPOSITORY: RADIATION DOSE DELIVERED:
[2022-11-08] MEDS: ceFAZolin 1 GM/50 ML BAG IVPB ×2 (01:42→10:21)
[2022-11-08] MEDS: Metoprolol 12.5 MG TAB PO ×3 (05:08→21:34)
[2022-11-08 06:42] LABS: HCT 35.5 % (36.0-46.0); HGB 11.6 g/dL (11.2-15.7); MCH 31.3 pg (27.0-33.0); MCHC 32.7 % (32.0-36.0); MCV 96 fL (80-95); MPV 10.8 fL (8.0-11.0); Platelet Count 250 10^3/uL (130-400); RBC 3.71 10^6/uL (3.93-5.22); RDW 13.1 % (11.7-14.6); RDW-SD 46.4 fL; WBC 7.64 10^3/uL (4.4-10.8)
[2022-11-08 07:03] LABS: ALT 19 U/L (14-59); AST 20 U/L (15-37); Alkaline Phosphatase 50 U/L (46-116); Anion Gap 5.8 mmol/L (3-11); BUN 11 mg/dL (7-18); Bilirubin, Total 0.3 mg/dL (0.2-1.0); CO2 28.2 mmol/L (21.0-32.0); CREATININE 0.8 mg/dL (0.55-1.02); Calcium 8.6 mg/dL (8.5-10.1); Chloride 105 mmol/L (98-107); Estimated GFR 77.27 (mL/min/1.73m2); Glucose 94 mg/dL (74-106); Potassium 4.1 mmol/L (3.5-5.1); Sodium 139 mmol/L (136-145); Total Protein 6.2 g/dL (6.4-8.2)
[2022-11-08] MEDS: Ascorbic Acid 500 MG TAB PO (07:59)
[2022-11-08] MEDS: Cholecalciferol (Vitamin D3) 1,000 UNIT TAB 1000 UNITS PO (07:59)
[2022-11-08] MEDS: buPROPion-CR 150 MG TABCR 300 MG PO (07:59)
[2022-11-08] MEDS: Ferrous Gluconate 324 MG TAB PO (07:59)
[2022-11-08] MEDS: Multivitamin TAB 1 TAB PO (07:59)
[2022-11-08] MEDS: Omeprazole 20 MG CAPCR 40 MG PO (07:59)
[2022-11-08] MEDS: Aspirin E.C. 81 MG TABEC PO ×2 (07:59→21:35)
[2022-11-08] MEDS: Montelukast 10 MG TAB PO (07:59)
[2022-11-08] MEDS: Oxybutynin 5 MG TAB PO (07:59)
[2022-11-08] MEDS: Gabapentin 600 MG TAB PO ×4 (08:00→21:35)
--- NOTE | 2022-11-08 08:21 | INITIAL_ITS ---
- If Service Date Differs Date of service: 11/08/22 Time of Service: 08:21 Care Management Initial Assess REASON FOR HOSPITALIZATION:: left femoral shaft fracture PAST MEDICAL HISTORY/PAST SURGICAL HISTORY:: All Active Problems (Updated 11/07/22 @ 07:05 by Uziel Justin MD). Left femoral shaft fracture (Acute 11/06/22). Medical History (Updated 11/07/22 @ 07:05 by Uziel Justin MD). Asthma. Barretts esophagus. Diverticulosis. Dysphagia. HTN (hypertension). Insomnia. Osteoporosis. Surgical History . Colonoscopy - MAC (08/19/17). 2006. EGD - IV Sedation. intramedulary nail right femoral bone PREVIOUS FUNCTIONAL STATUS/SOCIAL/FAMILY SUPPORTS:: Nikkie lives alone in a single family ranch style home in [place], [place] She does rent a room to travel nurses from time to time and currentky has a tenant who works at [employer]. 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 She does not have any children but has 3 great, supportive neighbors and her DPOA who lives in [place]. CURRENT FUNCTIONAL STATUS:: Nikkie was sitting up in bed when CM met with her. She was polite but did not offer much conversation, answering questions succinctly. When asked about SNF for rehab vs home with home health, she indicated she is not sure at this point. Nikkie informed CM that she does not know how well she will do with PT. Her preference would be to go home if she is able but as she lives alone, that may not be the best plan, depending on the level of independence she is able to achieve. Nikkie will choose 2-3 facilities for potential rehab and CM will send referrals in case she does require SNF level of care. ADVANCE DIRECTIVES:: on file. Freda MARTINI Has patient been provided with info about the portal/API?: Yes Did the patient sign up for the portal?: No CODE STATUS:: Full Code INSURANCE COVERAGE / FINANCIAL ISSUES:: Medicare. NCR [facility] CURRENT HOME/COMMUNITY SERVICES/EQUIPMENT:: has grab bars and home is essential ly handicapped accessible PRIMARY CARE PHYSICIAN:: Delaney Apple POTENTIAL DISCHARGE NEEDS:: Follow up with community providers and plan of care. May need SNF for short term rehab if unable to ambulate independently PATIENT/FAMILY EDUCATION NEEDS:: Review of dicharge instructions, limitations, activity, medications, follow up plan, discuss Ask Me Three ANTICIPATED BARRIERS TO DISCHARGE:: SNF bed availability if required TRANSPORTATION:: to be determined by disposition PLAN:: Nikkie richards likley be discharged home, possibly with new home health services, when medically cleared by provider,. She will follow up with orthopedics and her PCP and transport with a friend/family. CM will follow and support dicharge needs.
--- NOTE | 2022-11-08 08:54 | PT.INIE ---
PT Notes Visit Reasons: L Mid Shaft Femoral Fracture Inpatient Physical Therapy Evaluation Date: 11/08/2022 Referring Doctor: Dr. Uziel Justin PT Orders: PT CONSULT: WBAT with walker Precautions: Standard Patient Profile/Admitting Diagnosis: 72-year-old female postop day #1 status post left femur intramedullary nailing for atypical fracture (due to bisphosphonate use and denosumab). s/p left femur intramedullary nailing 11/07/2022 PMHX: All Active Problems?(Updated 11/07/22 @ 06:43 by José Luis Gaxiola) Left femoral shaft fracture (Acute) Medical History?(Updated 11/07/22 @ 06:43 by José Luis Gaxiola) Asthma Barretts esophagus Diverticulosis Dysphagia HTN (hypertension) Insomnia Osteoporosis Surgical History? Colonoscopy - MAC (08/19/17) 2007EGD - IV Sedation intramedulary nail right femoral bone Social History/Home Situation: [Has a live in but they do not help with function and cared, has neighbors that can help with small errands, single floor living once in home with 2 platform stairs to get into home. Was ambulating with walker x past couple of months due to pain, decreased balance. Has walkin shower and handicap accessible. 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 Current Functional Limitations: WBAT per orders, prior to admisssion indep with ADL, ambulating with walker Equipment Owned/DME: walker Subjective: I'm feeling nauseous, I think if I eat a little warm breakfast I'' be better complains of nausea on 3 attempts at visit as well as lightheaded/dizzy. Patient reports little to no pain 1/10 on first visit, 0/10 on second and third visit at initiation of activity. With movement and going sit to stand has pain increased to 5/10 but goes right back to 1/. Objective: General Observation: Supine in bed with HOB elevated, catheterized, IV, compression on right leg only, not moving the left lower extremity except for ankle pumps. Mental Status: A&O x3. pleasant, anticipating difficulty with walking due to pain Pain: 2/10, just returned from radiology, will premedicate and have a bite to eat before trying PT., patient needs antinausea medication before attempting PT complains of dizziness and nausea. Patient started second and third visit at 1?0/10 with increased pain with movement and transfers /10 but returns to 11/11. Vital Signs: 1l n/c O2, DC of O2 during session. ROM: Right Upper Extremity: WNL Left Upper Extremity: WNL Right Lower Extremity: WNL Left Lower Extremity: in sitting able to flex knee to 75 degrees, in supine 0 degrees, dorsiflexion 0 degrees, hip flexion in sitting 90, hip AB duction in supine 20 Strength: Right Upper Extremity: WFL Left Upper Extremity: WFL Right Lower Extremity: WFL Left Lower Extremity: Difficulty performing quad set, able to perform glutes set, hip flexion 2/5, knee extension 2/5, flexion 3 -/5, DF 3/5, PF 2 -/5 Sensation: Normal sensation to light touch both lower extremities Bed Mobility/Transfers: With assist of left lower extremity, and increased time patient able to move caudally in bed with verbal cueing to use right lower extremity. Supine to sit: Max assist with left LE, slow progress but able to move rest of body to edge of bed Sit to supine: Max assist with left LE, slow progress with increased pain left LE which dissipates as soon as rests. Needs VC to use right LE to be used in bed and to reposition. Bed to stand at RW: Moderate VC for hand positioning on bed, gait belt, min assist, unwilling to put weight on left leg performs with right and tends to reach for her walker. Performed 3 times Stand to sit from RW: Moderate VC for hand positioning on bed, gait belt, min assist, needs VC for positioning of left LE Gait: Unable to assess as patient has nausea, vomiting and dizziness with performing sit to stand, and unwilling to try due to these issues Balance: Static Sitting: WNL, good Dynamic Sitting: WNL, good Static Standing: At RW with left LE ER, with verbal cueing able to bring left LE in line with body but reports feels like my leg is unstable at the lower part, in standing able to shift 10% onto the left LE x5 Dynamic Standing: NT Special Tests: Mobility Limitations Standardized Measure [facility] AM-PAC 6 clicks Basic Mobility Inpatient Short Form: Raw Score: 8 standardized Score: 25.58 CMS Score: 86.60 Informed Consent/Education: Patient instructed in purpose of PT consult and plan of care. Assessment: Patient is a 72year old female referred to physical therapy services with the diagnosis of S/P left femur intra medullary nailing 11/07/2022. Patient presents with clinical signs and symptoms consistent with S/P left femur intra medullary nailing 11/07/19, secondary to osteoporosis. Patient lacks left LE range of motion, strength, poor transfer, poor bed mobility, unable to assess gait was ambulating with walker prior to admission, unable to set assess balance Impairments are contributing to the following functional limitations:86.62 deficit [facility] score. Patient is assessed as a Moderate 91616 complexity based on the following: History: Osteoporosis, lives alone, fractured femur with IM Examination: Transfers, strength, range of motion, balance, pain Presentation: Moderate Decision Making: Moderate Goals: Goals X1 week 1. Supine-Sit independent 2. Sit-Supine independent 3. Sit-Stand independent 4. Stand-Sit independent I 5. Bed-Chair independent 6. Chair-Bed independent 7. Gait with RW, WBAT, independent 8. Stairs able to assess 9. Independent with home exercise program 10. Balance good with RW Plan of Care/Treatment Plan: Today instructed in QS, GS, ankle pumps, heel slides(currently needs assist) to be perfromed hourly x5 reps 5 sec holds on sets. AA supine hip and knee flexion 20 degrees x 5, sit to stand x3, L AQ AA x5, standing weight transfer as tolerated to left x3 approximately 10%. Unable to assess gait with RW WBAT as patient is nauseous with vomiting and dizzy. Patient is encouraged with nursing staff and assist of left LE to go supine to sit and sit to stand at RW with gait belt and if able tomorrow and moving forward to ambulate WBAT with RW. Also advise AAROM of left LE to progress to AROM of left LE. 1-2x/day, 7 days/week x 1 week. Plan of care has been reviewed with the PRODUCTION TEAM MANAGER providing the service under Physical Therapy direction. Initiate Physical Therapy intervention for strengthening, bed mobility, transfers, gait, stairs, balance training, use of assistive device. DISCHARGE RECOMMENDATIONS: X SNF for continued rehabilitation [] TREATMENT CODE/TIME: 73082,39066/ 65'
[2022-11-08] MEDS: Meloxicam 15 MG TAB PO (09:03)
[2022-11-08] MEDS: fentaNYL 100 MCG/2 ML VIAL 50 MCG IVP (09:14)
[2022-11-08] MEDS: Normal Saline Flush 10 ML SYR IVP ×3 (09:15→14:12)
--- NOTE | 2022-11-08 09:17 | DI.VRAD_ITS ---
PROCEDURE INFORMATION: Exam: XR Right Femur Exam date and time: 11/08/2022 8:29 AM Age: 72 years old Clinical indication: Other: Pain TECHNIQUE: Imaging protocol: Radiologic exam of the Right femur. Views: 2 views. COMPARISON: No relevant prior studies available. FINDINGS: Bones/joints: Intramedullary adonis in the femur. The distal interlocking screw is fractured as it passes through the adonis.. The midshaft femur fracture is healed. Soft tissues: Unremarkable. IMPRESSION: 1. Intramedullary adonis in the femur. The distal interlocking screw is fractured as it passes through the adonis.. 2. The midshaft femur fracture is healed. Dictated and Authenticated by: Rivka Vogt MD. Ordering:KERI Triplett MD
--- NOTE | 2022-11-08 09:18 | DI.VRAD_ITS ---
PROCEDURE INFORMATION: Exam: XR Left Femur Exam date and time: 11/08/2022 8:31 AM Age: 72 years old Clinical indication: Other: Post op TECHNIQUE: Imaging protocol: Radiologic exam of the Left femur. Views: 2 views. COMPARISON: XA XR FEMUR LT 11/07/2022 2:41 PM FINDINGS: Bones/joints: Intramedullary adonis in the left femur. Proximal and distal interlocking screws.. Transverse fracture at the junction of the proximal 3rd and middle 3rd of the femoral shaft. Fracture fragments are in good alignment.. Soft tissues: Soft tissue swelling of the thigh IMPRESSION: 1. Intramedullary adonis in the left femur. Proximal and distal interlocking screws.. 2. Transverse fracture at the junction of the proximal 3rd and middle 3rd of the femoral shaft. Fracture fragments are in good alignment.. Dictated and Authenticated by: Rivka Vogt MD. Ordering:KERI Triplett MD
[2022-11-08] MEDS: Lactated Ringers 1,000 ML 60 ML IV (10:21)
[2022-11-08] MEDS: Ondansetron 4 MG/2 ML VIAL IVP (10:22)
--- NOTE | 2022-11-08 10:42 | W.PM.PROGNOT ---
Date of Service Date of service: 11/08/22 Time of Service: 10:42 Assessment and Plan Assessment and plan (1) Left femoral shaft fracture: Status: Acute Assessment and plan: 72-year-old female postop day #1 status post left femur intramedullary nailing for atypical fracture (due to bisphosphonate use and denosumab) Recovering appropriately. Refused d/c of shah catheter - will try to discontinue Shah catheter later today or tomorrow morning. Pain control-Multimodal - improving Physical therapy: Weightbearing as tolerated with assist device Chemical DVT prophylaxis: Aspirin 81 mg twice daily x30 days recommended if ambulatory Continue mechanical DVT prophylaxis with SCDs and/or RAZA hose bilaterallyDischarge when medically appropriate (2) DVT prophylaxis: Status: Acute Assessment and plan: Aspirin 81 mg BID SCD/RAZA (3) Discharge planning issues: Status: Acute Assessment and plan: When stable and able to ambulate Follow-up with Dr. Justin outpatient [facility] in 2 to 3 weeks Subjective Subjective Patient reports: no new complaints, still having pain, pain is less, tolerating a regular diet, voiding w/o difficulty (refuses to have urinary catheter out until she is able to walk more independently.), nausea (some nausea, resolved) and afebrile; denies diarrhea or vomiting Exam Narrative Exam Narrative: Resting comfortably Left thigh bandages clean, dry, and intact Thigh soft without any significant edema or ecchymosis Demonstrates intact motor of hip, knee, foot, and ankle Sensation grossly intact to light touch Objective Last Vital Signs Temp 37.6 C H 11/08/22 06:34 Pulse 63 11/08/22 07:23 Resp 14 11/08/22 06:34 BP 138/75 11/08/22 06:34 Pulse Ox 97 11/08/22 06:34 Laboratory Results - last 24 hr 11/08/22 11/08/22 06:00 06:00 WBC 7.64 RBC 3.71 L Hgb 11.6 Hct 35.5 L MCV 96 H MCH 31.3 MCHC 32.7 RDW 13.1 Plt Count 250 MPV 10.8 Sodium 139 Potassium 4.1 Chloride 105 Carbon Dioxide 28.2 Anion Gap 5.8 BUN 11 Creatinine 0.8 Est GFR (CKD-EPI 2020) 77.27 Glucose 94 Calcium 8.6 Total Bilirubin 0.3 AST 20 ALT 19 Alkaline Phosphatase 50 Total Protein 6.2 L Albumin 3.0 L Time Spent with Patient Time Spent with Patient: 25-34 minutes Time was spent: preparing to see the patient(eg.review tests), obtaining and/or reviewing separately otained hiistory, ordering medications,tests, procedures, referring, communicating with other health skin care instructor, counseling the patient and care coordination
[2022-11-08] MEDS: Enoxaparin 40 MG/0.4 ML SYR SC (12:10)
--- NOTE | 2022-11-08 14:01 | W.PM.PROGNOT ---
Date of Service Date of service: 11/08/22 Time of Service: 14:00 Assessment and Plan Assessment and plan (1) Left femoral shaft fracture: Status: Acute Assessment and plan: 72-year-old female postop day #1 status post left femur intramedullary nailing for atypical fracture (due to bisphosphonate use and denosumab) Patient seen. Chart reviewed. Recovering appropriately. Discontinue Bernstein catheter later today or tomorrow morning. Pain control-Multimodal Physical therapy: Weightbearing as tolerated with assist device Chemical DVT prophylaxis: Aspirin 81 mg twice daily x30 days recommended if ambulatory Continue mechanical DVT prophylaxis with SCDs and/or RAZA hose bilaterally Discussed with medical team Discharge when medically appropriate Follow-up with Dr. Justin outpatient [facility] in 2 to 3 weeks Subjective Subjective Interval history since last seen: Comfortable, resting, no complaints Exam Narrative Exam Narrative: Resting comfrotably Left thigh bandages clean, dry, and intact Thigh soft without any significant edema or ecchymosis Demonstrates intact motor out hip, knee, foot, and ankle Sensation grossly intact to light trouch Objective Last Vital Signs Temp 99.3 F 11/08/22 11:25 Pulse 72 11/08/22 11:25 Resp 18 11/08/22 11:25 BP 122/70 11/08/22 11:25 Pulse Ox 97 11/08/22 11:25 Laboratory Results - last 24 hr 11/08/22 11/08/22 06:00 06:00 WBC 7.64 RBC 3.71 L Hgb 11.6 Hct 35.5 L MCV 96 H MCH 31.3 MCHC 32.7 RDW 13.1 Plt Count 250 MPV 10.8 Sodium 139 Potassium 4.1 Chloride 105 Carbon Dioxide 28.2 Anion Gap 5.8 BUN 11 Creatinine 0.8 Est GFR (CKD-EPI 2020) 77.27 Glucose 94 Calcium 8.6 Total Bilirubin 0.3 AST 20 ALT 19 Alkaline Phosphatase 50 Total Protein 6.2 L Albumin 3.0 L Time Spent with Patient Time Spent with Patient: <25 minutes Time was spent: preparing to see the patient(eg.review tests), referring, communicating with other health adult care manager and counseling the patient
[2022-11-08] MEDS: Mometasone 220 MCG 14 DOSE INHALER 1 PUFF IH (22:38)
[2022-11-09] VITALS (10 sets, daily range): BP systolic 104–126; BP diastolic 44–75; PULSE 55–85; RESP 14–20; TEMP 36.1–38.2; O2SAT 91–98
--- NOTE | 2022-11-09 03:00 | RT.EKG_ITS ---
APPROVED REPORT Exam: Resting ECG Reason for Exam: A-santa Patient Location: I HR:85 bpm ECG Measurements Heart Rate 85 AXIS WA 159 P 55 QRSd 93 QRS -39 QT 359 T 51 QTc 427 Conclusion Sinus tachycardia...rate> 99 Atrial premature complexes...SV complexes w/ short R-R intvls Probable left atrial enlargement...P >50mS, <-0.10mV V1 Left axis deviation...QRS axis (-30,-90) Low voltage, extremity and precordial leads...extremity<0.5mV, precordial<1.0mV Abnormal R-wave progression, late transition...QRS area<0 in V5/V6 Baseline wander in lead(s) II,III,aVR,aVL,aVF,V4,V6
[2022-11-09] MEDS: Acetaminophen 325 MG TAB PO ×2 (03:31→07:49)
[2022-11-09] MEDS: Metoprolol 12.5 MG TAB PO ×2 (06:16→22:50)
[2022-11-09 06:44] LABS: Abs Immature Grans 0.05 10^3/uL (0.0-0.06); Absolute Basophil Count 0.09 10^3/uL (0.0-0.2); Absolute Eosinophil Count 0.32 10^3/uL (0.0-0.7); Absolute Lymphocyte Count 2.19 10^3/uL (1.2-3.4); Absolute Monocyte Count 1.09 10^3/uL (0.1-0.8); Absolute Neutrophil Count 7.76 10^3/uL (1.2-6.7); Basophils % 0.8; Eosinophils % 2.8; HCT 31.3 % (36.0-46.0); HGB 10.1 g/dL (11.2-15.7); Immature Grans % 0.4; MCH 31.1 pg (27.0-33.0); MCHC 32.3 % (32.0-36.0); MCV 96 fL (80-95); Monocytes % 9.5; Neutrophils % 67.5; Platelet Count 232 10^3/uL (130-400); RBC 3.25 10^6/uL (3.93-5.22); RDW 13.2 % (11.7-14.6)
[2022-11-09 07:15] LABS: Anion Gap 5.9 mmol/L (3-11); BUN 11 mg/dL (7-18); CO2 29.1 mmol/L (21.0-32.0); CREATININE 0.8 mg/dL (0.55-1.02); Calcium 8.6 mg/dL (8.5-10.1); Chloride 104 mmol/L (98-107); Estimated GFR 77.27 (mL/min/1.73m2); Glucose 99 mg/dL (74-106); Magnesium 1.8 mg/dL (1.8-2.4); Potassium 3.7 mmol/L (3.5-5.1); Sodium 139 mmol/L (136-145)
[2022-11-09] MEDS: Montelukast 10 MG TAB PO (07:49)
[2022-11-09] MEDS: Omeprazole 20 MG CAPCR 40 MG PO (07:49)
[2022-11-09] MEDS: Meloxicam 15 MG TAB PO (07:49)
[2022-11-09] MEDS: Gabapentin 600 MG TAB PO ×4 (07:49→19:52)
[2022-11-09] MEDS: Cholecalciferol (Vitamin D3) 1,000 UNIT TAB 1000 UNITS PO (09:14)
[2022-11-09] MEDS: Ferrous Gluconate 324 MG TAB PO (09:14)
[2022-11-09] MEDS: Oxybutynin 5 MG TAB PO (09:14)
[2022-11-09] MEDS: buPROPion-CR 150 MG TABCR 300 MG PO (09:14)
[2022-11-09] MEDS: Aspirin E.C. 81 MG TABEC PO ×2 (09:14→19:51)
[2022-11-09] MEDS: Multivitamin TAB 1 TAB PO (09:15)
[2022-11-09] MEDS: Normal Saline Flush 10 ML SYR IVP (09:25)
[2022-11-09] MEDS: fentaNYL 100 MCG/2 ML VIAL 50 MCG IVP ×2 (09:25→16:06)
--- NOTE | 2022-11-09 10:06 | PT.INTREAT ---
PT Notes Visit Reasons: L Mid Shaft Femoral Fracture Inpatient Physical Therapy Treatment Note [facility] Date: 11/09/22 PRECAUTIONS:WBAT SUBJECTIVE: Pt reports that she had to have more pain medication this am because she was still experiencing discomfort. OBJECTIVE: Supine-sit: Min assist with involved LE Sit-supine: Min assist with involved LE Sit-stand: CGA Stand-sit: CGA GAIT Assistive Device: FWW Weight bearing: WBAT Assist: CGA Distance: Standing at bed side wt shifting and mini marching to fatigue with one seated rest in between. Pt was feeling light headed and slight nausea from the pain medication so she did not feel comfortable ambulating away from the bed. THEREX: Heel slides x 10, Q.S x 10, G.S. x 10, Supine hip abd with assist x 5, LAQ with assist x 10. ASSESSMENT: Pt tolerated today's session fairly well still trying to manage her pain. PLAN: Cont as per PT POC. TREATMENT CODE/TIME: 9:40-10:05 (25) NICHOLE NEWMAN
--- NOTE | 2022-11-09 10:27 | W.PM.PROGNOT ---
Date of Service Date of service: 11/09/22 Time of Service: 10:27 Assessment and Plan Assessment and plan (1) Left femoral shaft fracture: Status: Acute Assessment and plan: 72-year-old female postop day #2 status post left femur intramedullary nailing for atypical fracture (due to bisphosphonate use and denosumab) Bernstein catheter was discontinued yesterday Pain control-Multimodal Physical therapy: Weightbearing as tolerated with assist device - going slowly, nausea from pain meds, she stays close to the bed Chemical DVT prophylaxis: Aspirin 81 mg twice daily x30 days Continue mechanical DVT prophylaxis with SCDs and/or RAZA hose bilaterally Discharge potentially Thursday Follow-up with Dr. Justin outpatient [facility] in 2 to 3 weeks (2) UTI (urinary tract infection): Status: Acute Assessment and plan: Fever - did have indwelling urinary catheter for surgery, she refused to have it removed yesterday - fever today - CC urine + UTI - fosfomycin given (3) DVT prophylaxis: Status: Acute Assessment and plan: Aspirin BID per recommendation of ortho (4) Discharge planning issues: Status: Acute Assessment and plan: Req SNF - lives alone, concerned she won't be able to care for herself Discussed with Dr Rivas. Subjective Subjective Patient reports: no new complaints, feels better, still having pain (considerably less pain), pain is less, tolerating a regular diet, voiding w/o difficulty (No urgency, frequency or pain) and fever (CC urine ordered ); denies diarrhea, nausea, vomiting or shortness of breath Interval history since last seen: Requesting to go to SNF - states she lives alone and is not able to care for herself until she is more steady on her feet. Exam Narrative Exam Narrative: Resting comfrotably Left thigh bandages clean, dry, and intact Thigh soft without any significant edema or ecchymosis Demonstrates intact motor hip, knee, foot, and ankle Sensation grossly intact to light touch DP/PT palp LAUNDRY PRESS OPERATOR ~ 3 secs - foot pink and dry Const General: cooperative, healthy appearing, comfortable, no acute distress, well developed and well groomed Chest Chest: normal inspection of the chest Resp Effort & Inspection: normal respiratory effort and able to speak in complete sentences Auscultation: clear to auscultation bilaterally Cardio Jugular venous pressure: no JVD Rate: regular rate Rhythm: regular rhythm Heart Sounds: S1 normal and S2 normal GI Inspection: normal to inspection Auscultation: normal bowel sounds Objective Last Vital Signs Temp 37.5 C 11/09/22 06:14 Pulse 65 11/09/22 07:28 Resp 14 11/09/22 06:14 BP 104/65 11/09/22 06:14 Pulse Ox 94 11/09/22 06:14 Laboratory Results - last 24 hr 11/09/22 11/09/22 05:38 05:38 WBC 11.50 H RBC 3.25 L Hgb 10.1 L Hct 31.3 L MCV 96 H MCH 31.1 MCHC 32.3 RDW 13.2 Plt Count 232 MPV 11.0 Immature Gran % 0.4 Neutrophils % 67.5 Lymphocytes % 19.0 Monocytes % 9.5 Eosinophils % 2.8 Basophils % 0.8 Nucleated RBC % 0.0 Absolute Neutrophils 7.76 H Absolute Lymphocytes 2.19 Absolute Monocytes 1.09 H Absolute Eosinophils 0.32 Absolute Basophils 0.09 Sodium 139 Potassium 3.7 Chloride 104 Carbon Dioxide 29.1 Anion Gap 5.9 BUN 11 Creatinine 0.8 Est GFR (CKD-EPI 2020) 77.27 Glucose 99 Calcium 8.6 Magnesium 1.8 Time Spent with Patient Time Spent with Patient: 25-34 minutes Time was spent: preparing to see the patient(eg.review tests), obtaining and/or reviewing separately otained hiistory, ordering medications,tests, procedures, referring, communicating with other health career services director, indepentently interpreting results, counseling the patient and care coordination
[2022-11-09 14:15] LABS: Bilirubin Negative (Negative); Blood Trace-lysed (Negative); Clarity Cloudy (Clear); Glucose Negative (Negative); Ketones Negative (Negative); Leukocyte Esterase Large (Negative); Nitrite Positive (Negative); Urobilinogen 0.2 EU/dL (Up TO 0.2)
[2022-11-09 14:25] LABS: Bacteria Many HPF (Negative); C & S Indicated? Yes; Casts Negative LPF (Negative); Crystals Negative HPF (Negative); Epithelial Cells Few HPF (Negative); Mucus Negative (Negative); RBC 0-2 HPF (0-2); WBC >50 HPF (0-5)
[2022-11-09 19:10] LABS: Bilirubin Negative (Negative); Blood Trace-intact (Negative); Clarity Cloudy (Clear); Glucose 100 mg/dL (Negative); Ketones Negative (Negative); Leukocyte Esterase Large (Negative); Nitrite Positive (Negative); Urobilinogen 0.2 EU/dL (Up TO 0.2)
[2022-11-09 19:18] LABS: Bacteria Many HPF (Negative); Epithelial Cells Few HPF (Negative); RBC 0-2 HPF (0-2); WBC >50 HPF (0-5)
[2022-11-09 19:19] LABS: C & S Indicated? Yes; Casts Negative LPF (Negative); Crystals Negative HPF (Negative); Mucus Negative (Negative)
[2022-11-09] MEDS: Fosfomycin Tromethamine 3 GM PACKET PO (19:53)
[2022-11-10] VITALS (9 sets, daily range): BP systolic 105–128; BP diastolic 53–82; PULSE 64–91; RESP 14–16; TEMP 36.7–37.6; O2SAT 93–97
[2022-11-10] MEDS: Acetaminophen 325 MG TAB PO ×3 (03:22→19:31)
[2022-11-10] MEDS: Metoprolol 12.5 MG TAB PO ×3 (06:40→22:00)
[2022-11-10] MEDS: Aspirin E.C. 81 MG TABEC PO ×2 (08:00→19:31)
[2022-11-10] MEDS: Gabapentin 600 MG TAB PO ×4 (08:00→19:32)
[2022-11-10] MEDS: Ferrous Gluconate 324 MG TAB PO (08:01)
[2022-11-10] MEDS: Multivitamin TAB 1 TAB PO (08:01)
[2022-11-10] MEDS: Meloxicam 15 MG TAB PO (08:01)
[2022-11-10] MEDS: Montelukast 10 MG TAB PO (08:01)
[2022-11-10] MEDS: buPROPion-CR 150 MG TABCR 300 MG PO (08:02)
[2022-11-10] MEDS: Cholecalciferol (Vitamin D3) 1,000 UNIT TAB 1000 UNITS PO (08:02)
[2022-11-10] MEDS: Oxybutynin 5 MG TAB PO (08:02)
[2022-11-10] MEDS: Omeprazole 20 MG CAPCR 40 MG PO (08:05)
--- NOTE | 2022-11-10 14:16 | PT.INTREAT ---
PT Notes Visit Reasons: L Mid Shaft Femoral Fracture Date: 11/10/2022 PRECAUTIONS: Fall, WBAT SUBJECTIVE: pt pre-medicated pre therapy, pt reports that pain is minimal 45mins post pain meds and was agreeable to participating with therapy. OBJECTIVE:? PAIN: 3-4/10 for pain when standing and during activity. pain subsides right away when pt is resting. ? BED MOBILITY/TRANSFERS? Supine-sit: Min A for LLE ? Sit-supine: S ? Sit-stand: CGA? Stand-sit: CGA? GAIT? Assistive Device: FWW ? Weight bearing: WBAT Assist: CGA ? Distance: 100' ? Deviation: Slow antalgic gait ? Therapeutic Procedures [id number]: for warm up prior to gait training and transfer training: Seated Marching till fatigue, seated hip ab/ad [id number], seated internal external rotation [id number] seated LAQ [id number], Quad sets, Gluteal sets and TrA Activation 5x 15secs hold, ankle pumping, circles and plantardorsi for swelling management. TOILETING: Patient toileted SBA. ? ASSESSMENT: Pt seen for therapeutic procedures in the morning and gait training and transfer training in the afternoon. pt tolerated activity well given enough rest breaks in between activity. PLAN: Continue with general conditioning for improved activity tolerance. TREATMENT CODE/TIME: 25 minutes am, 25 mins pm; [id number], [id number](09:30-9:55am/1:00-1:25pm)
--- NOTE | 2022-11-10 17:24 | PGE_ITS ---
Date of Service Date of service: 11/10/22 Time of Service: 17:24 Assessment and Plan Assessment and plan (1) Left femoral shaft fracture: Status: Acute Assessment and plan: 72-year-old female postop day #3 status post left femur intramedullary nailing for atypical fracture (due to bisphosphonate use and denosumab) Bernstein catheter was discontinued yesterday Pain control-Multimodal Physical therapy: Weightbearing as tolerated with assist device - going slowly, nausea from pain meds, she stays close to the bed Chemical DVT prophylaxis: Aspirin 81 mg twice daily x30 days Continue mechanical DVT prophylaxis with SCDs and/or RAZA hose bilaterally Discharge potentially Thursday Follow-up with Dr. Justin outpatient [facility] in 2 to 3 weeks (2) UTI (urinary tract infection): Status: Acute Assessment and plan: No fever today- fosfomycin given 11/09/2022 - urine cx prelim today 11/10/22 >100,000 gram neg adonis, pseudomonas aeruginosa - Cipro 500 mg BID x 5 d (López and Pharmacist) (3) DVT prophylaxis: Status: Acute Assessment and plan: Aspirin BID per recommendation of ortho (4) Discharge planning issues: Status: Acute Assessment and plan: Req SNF - lives alone, concerned she won't be able to care for herself Discussed with Dr Plascencia. Subjective Subjective Patient reports: no new complaints, feels better, pain is less, tolerating a re gular diet, bowel movement and afebrile; denies diarrhea, nausea or vomiting Interval history since last seen: Dariana reports improvement, is ambulating with walker to bathroom and back, awake, alert, pain is less. She continues to feel unsafe to go home, placement is pending. She has chosen three sites she would entertain going to, care mgrs have sent referrals. 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 ~ 3 secs - foot pink and dry Const General: cooperative, healthy appearing, comfortable, no acute distress, well developed and well groomed Chest Chest: normal inspection of the chest Resp Effort & Inspection: normal respiratory effort and able to speak in complete sentences Auscultation: clear to auscultation bilaterally Cardio Jugular venous pressure: no JVD Rate: regular rate Rhythm: regular rhythm Heart Sounds: S1 normal and S2 normal GI Inspection: normal to inspection Auscultation: normal bowel sounds Objective Last Vital Signs Temp 36.7 C 11/10/22 14:42 Pulse 64 11/10/22 14:42 Resp 14 11/10/22 14:42 BP 112/66 11/10/22 14:42 Pulse Ox 97 11/10/22 14:42 Laboratory Results - last 24 hr 11/09/22 11/09/22 14:07 18:52 Urine Color Yellow Yellow Urine Clarity Cloudy Cloudy Urine pH 6.0 7.0 Ur Specific [place] 1.010 1.010 Urine Protein Trace H Negative Urine Ketones Negative Negative Urine Blood Trace-lysed H Trace-intact H Urine Nitrite Positive H Positive H Urine Bilirubin Negative Negative Urine Urobilinogen 0.2 0.2 Ur Leukocyte Esterase Large H Large H Urine RBC 0-2 0-2 Urine WBC >50 H >50 H Ur Epithelial Cells Few Few Urine Crystals Negative Negative Urine Bacteria Many Many Urine Casts Negative Negative Urine Mucus Negative Negative Ur Culture Indicated? Yes Yes Urine Glucose Negative 100 Time Spent with Patient Time Spent with Patient: 25-34 minutes Time was spent: preparing to see the patient(eg.review tests), obtaining and/or reviewing separately otained hiistory, ordering medications,tests, procedures, referring, communicating with other health career counselor, indepentently interpreting results, counseling the patient and care coordination
[2022-11-10] MEDS: Ciprofloxacin 500 MG TAB PO (19:32)
[2022-11-10] MEDS: Normal Saline Flush 10 ML SYR IVP (19:35)
[2022-11-10] MEDS: Mometasone 220 MCG 14 DOSE INHALER 1 PUFF IH (20:12)
[2022-11-10] MEDS: Sodium Chloride-Nasal SPRAY-ADULT 44 ML BTL NS (20:27)
[2022-11-11 03:21] VITALS: BP 112/66; PULSE 67; RESP 14; TEMP 36.8; O2SAT 97
[2022-11-11 06:15] LABS: Abs Immature Grans 0.03 10^3/uL (0.0-0.06); Absolute Basophil Count 0.07 10^3/uL (0.0-0.2); Absolute Lymphocyte Count 2.37 10^3/uL (1.2-3.4); Absolute Monocyte Count 0.77 10^3/uL (0.1-0.8); Absolute Neutrophil Count 4.71 10^3/uL (1.2-6.7); Basophils % 0.8; Eosinophils % 5.9; HCT 31.2 % (36.0-46.0); HGB 10.3 g/dL (11.2-15.7); Immature Grans % 0.4; MCH 31.3 pg (27.0-33.0); MCV 95 fL (80-95); MPV 10.7 fL (8.0-11.0); Monocytes % 9.1; Neutrophils % 55.8; Platelet Count 269 10^3/uL (130-400); RBC 3.29 10^6/uL (3.93-5.22); RDW 13.2 % (11.7-14.6); RDW-SD 46.7 fL; WBC 8.45 10^3/uL (4.4-10.8)
[2022-11-11] MEDS: Acetaminophen 325 MG TAB PO ×2 (06:18→16:22)
[2022-11-11] MEDS: Metoprolol 12.5 MG TAB PO ×2 (06:18→13:21)
[2022-11-11 06:28] LABS: Anion Gap 6.1 mmol/L (3-11); BUN 18 mg/dL (7-18); CO2 28.9 mmol/L (21.0-32.0); CREATININE 0.8 mg/dL (0.55-1.02); Calcium 8.9 mg/dL (8.5-10.1); Chloride 106 mmol/L (98-107); Estimated GFR 77.27 (mL/min/1.73m2); Glucose 99 mg/dL (74-106); Potassium 4.1 mmol/L (3.5-5.1); Sodium 141 mmol/L (136-145)
[2022-11-11 07:42] VITALS: BP 142/71; PULSE 67; RESP 17; TEMP 36.8; O2SAT 95
[2022-11-11] MEDS: Oxybutynin 5 MG TAB PO (07:53)
[2022-11-11] MEDS: Multivitamin TAB 1 TAB PO (07:54)
[2022-11-11] MEDS: Ciprofloxacin 500 MG TAB PO (07:54)
[2022-11-11] MEDS: Meloxicam 15 MG TAB PO (07:54)
[2022-11-11] MEDS: Gabapentin 600 MG TAB PO ×3 (07:54→16:22)
[2022-11-11] MEDS: Montelukast 10 MG TAB PO (07:54)
[2022-11-11] MEDS: buPROPion-XL 150 MG TABCR 300 MG PO (07:54)
[2022-11-11] MEDS: Omeprazole 20 MG CAPCR 40 MG PO (07:54)
[2022-11-11] MEDS: Aspirin E.C. 81 MG TABEC PO (07:54)
[2022-11-11] MEDS: Ferrous Gluconate 324 MG TAB PO (07:54)
[2022-11-11] MEDS: Cholecalciferol (Vitamin D3) 1,000 UNIT TAB 1000 UNITS PO (07:54)
[2022-11-11] MEDS: Sodium Chloride-Nasal SPRAY-ADULT 44 ML BTL NS (07:57)
--- NOTE | 2022-11-11 08:51 | PT.INTREAT ---
PT Notes Visit Reasons: L Mid Shaft Femoral Fracture Date: 11/11/2022 PRECAUTIONS: Fall, WBAT SUBJECTIVE: pt eating breakfast in recliner when approached for therapy this morning. pt reports that she slept well and that her Left leg is not bothering her as much. 11/11 for pain sitting. pt agreed to participating with therapy. Subjective for the afternoon pt reports that she is having esophageal spasms and was not able to take meds as a result, this concerns her if she goes home, pt also has concerns about medication management, pain management and transport going to appointments when she goes home. pt would like to be placed in a SNF or acute rehab or swing to help manage her concerns until she feels strong enough to address them. OBJECTIVE:? PAIN: morning 11/11 sitting, -06/11 initial standing, 11/11 standing after 10secs, 11/11 post session Afternoon 02/09 while seated -04/11 during standing activity. ? BED MOBILITY/TRANSFERS? Supine-sit: Min A for LLE ? Sit-supine: S ? Sit-stand: SBA ? Stand-sit: SBA? GAIT? Assistive Device: FWW ? Weight bearing: WBAT Assist: CGA ? Distance: 60' ? Deviation: Slow antalgic gait ? Therapeutic Procedures 87881: Seated Marching till fatigue, seated hip ab/ad [id number], seated internal external rotation [id number] seated LAQ [id number], Quad sets, Gluteal sets and TrA Activation 5x 15secs hold, ankle pumping, circles and plantardorsi for swelling management, Standing static 5mins, Standing hip PRE [id number] ? ASSESSMENT: Pt reports that she feels extra nauseous today resulting in decreased gait distance. pt recovers instantly after getting back in recliner. pt required seated rest break in between activity during PM activity. PLAN: Continue with general conditioning for improved activity tolerance. TREATMENT CODE/TIME: 15 minutes am, 25 mins pm; 75859, [id number](08:35-8:50am/2:35-3:00pm)
[2022-11-11 09:53] VITALS: BP 138/95; PULSE 95; RESP 14; TEMP 37.3; O2SAT 99
[2022-11-11 10:46] VITALS: BP 108/66; PULSE 62; RESP 17; TEMP 36.8; O2SAT 96
[2022-11-11 12:00] VITALS: BP 130/64; PULSE 68; RESP 16; TEMP 36.9; O2SAT 97
--- NOTE | 2022-11-11 15:26 | CHAPLAIN ---
I had a brief visit with Dariana today, introducing myself and offering support. Dariana said she doesn't have any family, but is in touch with her friends. She did not seem interested in further conversation.
[2022-11-11 15:44] VITALS: BP 121/64; PULSE 74; RESP 16; TEMP 37; O2SAT 96
--- NOTE | 2022-11-11 16:34 | DSE_ITS ---
Date of service: 11/11/22 Time of Service: 16:34 DS: Diagnosis Discharge Diagnosis (1) Left femoral shaft fracture: Status: Acute (2) UTI (urinary tract infection): Status: Acute (3) DVT prophylaxis: Status: Acute (4) Discharge planning issues: Status: Acute Discharge Plan Disposition Patient Disposition: Home W/Home Health Services Condition: Improving Discharge Details Reason For Visit: L Mid Shaft Femoral Fracture Admit Date/Time: 11/07/22 05:56 Admit Provider: José Luis Gaxiola Attending Provider: José Luis Gaxiola Primary Care Provider: Delaney Apple [place] [facility] Hospital Course: Ms. Saul is a 72-year-old female with PMH of Metzger's esophagus, hypertension, PACs, asthma, significant osteoporosis treated with Prolia injections as well as history of right femur IM nail in 2005.? Patient reported to the [facility] ED on 11/27/2022 with chief compliant of left thigh pain. Patient stated she was walking around her home with a walker when she twisted and had immediate pain in the left leg.? Patient reported left leg discomfort for several months which she has been starting to work-up with her typical orthopedic practice in [place], [place] and they were planning on obtaining an MRI if she continued to have left leg pain.? She was found to have fracture in the setting of osteoporosis similar to classic bisphosphonate fracture. She was seen by Dr Fink, taken to the OR and her femur was repaired. She did have a shah catheter and when that was removed she had a fever and was checked for UTI. She tested positive for UTI and was given fosfomycin. The culture came back positive for Pseudomonas Aeruginosa; she was put on Ciprofloxacin 500 mg twice a day (renal dosing) for 5 days. She had no symptoms and no further fevers. She was seen by PT and they feel that she is independent and can be discharged to home with home health PT and OT. Patient is aprehensive and would like to go to a [facility] facility. After discussion with PT and patient, she has agreed it is appropriate to go home and we will have home health PT, OT and she states she has trouble with her medications, therefore we will ask for nursing to see her. She lives with someone that is an occupaitonal therapist and is available to assist her, she also reports a male nurse is leasing from her and he too is available, as well as friends in the neighborhood. She is discharged to home with instructions to complete course of Cipro and take aspirin 81 mg twice a day for 30 days. Follow up with Orthopedics in 2-[address] Plascencia Home Meds and New Rx's Prescriptions: New ciprofloxacin HCl 500 mg Tablet 500 mg PO BID Qty: 10 0RF ondansetron 4 mg tablet,disintegrating 4 mg PO Q6H PRNQty: 20 0RF ibuprofen 600 mg tablet 600 mg PO Q6H PRNQty: 30 0RF Continued multivitamin [Daily Value] 1 EACH tablet 1 ea PO DAILY omeprazole 40 MG capsule,delayed release(DR/EC) 40 mg PO DAILY ascorbic acid (vitamin C) [Vitamin C] 500 MG capsule, extended release 500 mg PO DAILY Qty: 2 montelukast 10 MG tablet 10 mg PO DAILY albuterol sulfate [ProAir HFA] 8.5 GM HFA aerosol inhaler 1 puff Inhalation Q6H PRN Qvar 8.7 GM aerosol 2 puff Inhalation BID bupropion HCl 300 MG tablet extended release 24 hr 300 mg PO DAILY Calcium Magnesium + D 1 EACH tablet 1 ea PO melatonin 10 MG tablet extended release 10 mg PO HS gabapentin 600 mg Tablet 600 mg PO QID meloxicam 15 mg Tablet 15 mg PO DAILY acetaminophen 500 mg Tablet 1,000 mg PO BID lorazepam 0.5 mg Tablet 0.5 mg PO methocarbamol 750 mg Tablet 750 mg PO BID PRN hyoscyamine sulfate 0.125 mg Tablet, Sublingual 0.125 mg PO PRN lisinopril 5 mg Tablet 5 mg PO DAILY metoprolol succinate 25 mg Tablet Extended Release 24 Hr 25 mg PO DAILY oxybutynin chloride 5 mg Tablet 5 mg PO DAILY ferrous gluconate 324 mg (37.5 mg iron) Tablet 324 mg PO DAILY Cbd Oral Edibles PO DAILY Changed aspirin 81 mg Tablet,Delayed Release (Dr/Ec) 81 mg PO BID Qty: 0 0RF Discontinued Prolia 60 mg/mL Syringe 60 mg SUBCUT Discharge Instructions Instructions: Closed Reduction Internal Fixation of Leg Fracture in Adults (DC) Additional Instructions: Take aspirin 81 mg twice a day for 30 days. Home health will call you to arrange a time to come to your home and admit you to their services. Stop taking Prolia. Stand Alone Forms: Nursing Discharge Form Referrals: Uziel Jsutin MD [ [facility] STAFF PHYSICIAN] - (Please call to make an appointment at [phone] IN 2-3 WKS) Delaney Apple [Primary Care Provider] - (Please call to make an appointment at [phone] 1-2 weeks) Activity:: Activity as Tolerated Equipment/Supplies:: Walker Diet:: Low Sodium Discharge Orders Discharge Orders: Discharge Order (Routine); Ordered 11/11/22 Ordered By: Abena Pederson Discharge Data Discharge Date/Time-TO BE ENTERED AT DEPARTURE: 11/11/22 17:16 DS: Summary Time Spent with Patient providing and/or coordinating discharge services: Greater than 30 minutes Status at Discharge Functional status at discharge: uses cane/walker Overall status at discharge: patient is progressing back to baseline Mental Status: mental status grossly normal Speech and Movement: speech and movement normal Mood: congruent mood Affect: normal affect Exam Narrative Exam Narrative: Day # 4 post op Resting comfortably, up in chair, working with PT Left thigh bandages clean, dry, and intact Thigh soft without any significant edema or ecchymosis, swelling is definatley less today Demonstrates intact motor hip, knee, foot, and ankle Sensation grossly intact to light touch DP/PT palp HOSPITALITY RECRUITER ~ 3 secs - foot pink and dry Const General: cooperative, healthy appearing, comfortable, no acute distress, well developed and well groomed Chest Chest: normal inspection of the chest Resp Effort & Inspection: normal respiratory effort and able to speak in complete sentences Auscultation: clear to auscultation bilaterally Cardio Jugular venous pressure: no JVD Rate: regular rate Rhythm: regular rhythm Heart Sounds: S1 normal and S2 normal GI Inspection: normal to inspection Auscultation: normal bowel sounds Psych Mental Status: mental status grossly normal Speech and Movement: speech and movement normal Mood: congruent mood Affect: normal affect DS: Data Vitals/I&O Vitals and I&O: Vital Signs Temperature 37 C 11/11/22 15:44 Temperature Source Tympanic 11/11/22 15:44 Pulse 74 11/11/22 15:44 Pulse Rhythm Regular 11/11/22 15:18 Pulse 71 11/07/22 13:10 Respiratory Rate 16 11/11/22 15:44 Respiratory Effort Non-Labored 11/11/22 15:18 Respiratory Depth Normal 11/11/22 15:18 Respiratory Pattern Normal 11/11/22 15:18 Blood Pressure 121/64 11/11/22 15:44 Blood Pressure Mean 72 11/07/22 13:00 Blood Pressure Position Supine 11/07/22 00:24 Pulse Oximetry 96 11/11/22 15:44 Respiratory End-tidal CO2 30 11/07/22 17:26 Oxygen Delivery Method Room Air 11/11/22 15:44 Oxygen Flow Rate 0 11/11/22 15:44 Pain Level 5 11/11/22 16:22 Comment 11/09/22 14:40 Intake & Output 11/10/22 11/11/22 11/11/22 23:59 11:59 23:59 Intake Total 480 / 480 Balance 480 / -570 Intake: Oral 480 / 480 Other: Urine Color Pale Yellow Yellow Urine Appearance Clear Clear Clear Urine Odor None Comment pt independently voided Voiding Methods Toilet Toilet Toilet Data Completed and Pending Labs on day of discharge: Labs from last 24 hours 11/11/22 11/11/22 05:49 05:49 WBC 8.45 RBC 3.29 L Hgb 10.3 L Hct 31.2 L MCV 95 MCH 31.3 MCHC 33.0 RDW 13.2 Plt Count 269 MPV 10.7 Immature Gran % 0.4 Neutrophils % 55.8 Lymphocytes % 28.0 Monocytes % 9.1 Eosinophils % 5.9 Basophils % 0.8 Nucleated RBC % 0.0 Absolute Neutrophils 4.71 Absolute Lymphocytes 2.37 Absolute Monocytes 0.77 Absolute Eosinophils 0.50 Absolute Basophils 0.07 Sodium 141 Potassium 4.1 Chloride 106 Carbon Dioxide 28.9 Anion Gap 6.1 BUN 18 Creatinine 0.8 Est GFR (CKD-EPI 2020) 77.27 Glucose 99 Calcium 8.9 Magnesium 2.0 PFSH All Active Problems (Updated 11/09/22 @ 16:56 by Abena Pederson NP) UTI (urinary tract infection) (Acute) Discharge planning issues (Acute) DVT prophylaxis (Acute) Left femoral shaft fracture (Acute 11/06/22) Medical History (Updated 11/09/22 @ 16:56 by Abena Pederson NP) Allergic rhinitis due to pollen (06/30/16) Asthma Barretts esophagus Diverticulosis Dysphagia HTN (hypertension) Insomnia Osteoporosis Surgical History Colonoscopy - MAC (08/19/17) 2006 EGD - IV Sedation intramedulary nail right femoral bone Family History Other Essential hypertension Stroke Social History Smoking/Tobacco Use Status: Never Smoking risk assessment performed?: Yes Alcohol Intake: never Substance use type: does not use Time Spent with Patient Time Spent with Patient: <45 minutes Time was spent: preparing to see the patient(eg.review tests), obtaining and/or reviewing separately otained hiistory, ordering medications,tests, procedures, referring, communicating with other health home health care respiratory therapist, indepentently interpreting results, counseling the patient and care coordination
--- NOTE | 2022-11-11 17:00 | PT.INDS ---
Date of service: 11/13/22 PT Notes Visit Reasons: L Mid Shaft Femoral Fracture Physical Therapy Inpatient Discharge Summary Date: 11/11/2022 Dates of service: 11/08/2019 through 11/11/2022 This is a clinical summary of care provided for the duration of dates listed above. No charge was made in the completion of this documentation. Referring Doctor:? Dr. Uziel Justin PT Orders: PT CONSULT: WBAT with walker Precautions: Standard Patient Profile/Admitting Diagnosis:?? 72-year-old female postop day #1 status post left femur intramedullary nailing for atypical fracture (due to bisphosphonate use and denosumab).? s/p left femur intramedullary nailing 11/07/2022. PMHX: All Active Problems?(Updated 11/07/22 @ 06:43 by José Luis Gaxiola) Left femoral shaft fracture (Acute) Medical History?(Updated 11/07/22 @ 06:43 by José Luis Gaxiola) Asthma Barretts esophagus Diverticulosis Dysphagia HTN (hypertension) Insomnia Osteoporosis Surgical History? Colonoscopy - MAC (08/19/17) 2007EGD - IV Sedation intramedulary nail right femoral bone Social History/Home Situation: [Has a live in but they do not help with function and cared, has neighbors that can help with small errands, single floor living once in home with 2 platform stairs to get into home.? Was ambulating with walker x past couple of months due to pain, decreased balance.? Has walkin shower and handicap accessible.? 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 Current Functional Limitations: WBAT per orders, prior to admisssion indep with ADL, ambulating with walker Equipment Owned/DME: None Subjective:? NT. See most recent ADMINISTRATIVE SERVICES SPECIALIST notes. Objective:? General Observation: NT. See most recent ADMINISTRATIVE SERVICES SPECIALIST notes. Mental Status: NT. See most recent ADMINISTRATIVE SERVICES SPECIALIST notes. Pain: NT. See most recent ADMINISTRATIVE SERVICES SPECIALIST notes. Vital Signs: NT. See most recent ADMINISTRATIVE SERVICES SPECIALIST notes. ROM: Right Upper Extremity: WNL Left Upper Extremity: WNL Right Lower Extremity: WNL Left Lower Extremity:? in sitting able to flex knee to 75 degrees, in supine 0 degrees, dorsiflexion 0 degrees, hip flexion in sitting 90, hip AB duction in supine 20 Strength: Right Upper Extremity: WFL Left Upper Extremity: WFL Right Lower Extremity: WFL Left Lower Extremity: Difficulty performing quad set, able to perform glutes set, hip flexion 2/5, knee extension 2/5, flexion 3 -/5, DF 3/5, PF 2 -/5 Sensation:? Normal sensation to light touch both lower extremities BED MOBILITY/TRANSFERS? Supine-sit: Min A for LLE ? Sit-supine: S ? Sit-stand: SBA ? Stand-sit: SBA? GAIT? Assistive Device: FWW ? Weight bearing: WBAT Assist: CGA ? Distance: 60' ? Deviation: Slow antalgic gait Balance:? Static Sitting:Normal Dynamic Sitting: Normal Static Standing: Fair Dynamic Standing: Fair Assessment:?? Patient is a 72-year-old female referred to physical therapy services with the diagnosis of S/P left femur intra medullary nailing 11/07/2022.? Patient presents with clinical signs and symptoms consistent with S/P left femur intra medullary nailing 11/07/19, secondary to osteoporosis.? Patient lacks left LE range of motion, strength, poor transfer, poor bed mobility, unable to assess gait was ambulating with walker prior to admission, unable to set assess balance ? Impairments are contributing to the following functional limitations:86.62 deficit AMPAC score. Goals: Goals X1 week 1. Supine-Sit independent NOT MET 2. Sit-Supine independent NOT MET 3. Sit-Stand independent NOT MET 4. Stand-Sit independent NOT MET 5. Bed-Chair independent NOT MET 6. Chair-Bed independent NOT MET 7. Gait with RW, WBAT, independent NOT MET 8. Stairs able to assess NOT MET 9. Independent with home exercise program NOT MET 10. Balance good with RW NOT MET DISCHARGE RECOMMENDATIONS: Patient will benefit from home health PT services in order to progress mobility level using least restrictive assistive ambulatory device, assess home safety, identify additional equipment needs, and establish a functional maintenance program that will increase ability of patient to remain at home. TREATMENT CODE/TIME: GA Thank you for the opportunity to participate in the care of this patient. Nedra Lang PT, DPT, CLT [facility] [place], [place] written exercises
--- NOTE | 2022-11-11 17:08 | PDOC.CMDIS ---
- If Service Date Differs Date of service: 11/11/22 Time of Service: 15:30 LACE Index Scoring Tool - Questions: Length of Stay (in days): 4 - 6 Acuity (Admit via E.D.?): Yes E.D. Visits: 1 - Answers: Total Score: 8 Risk of Readmission: Low Risk Care Management Discharge Reason for Hospitalization: left femoral shaft fracture Discharge Plan: CM reviewed discharge plan with Katlyn including PT, MD updates. Curtis didn't feel confident in returning home; this appears more related to anxiety than any specific medical concerns. States her pain is managed, but she is afraid of being in pain at home. Walking 60 ft with walker; SBA. Patient advocated for swing bed-does not require inpatient rehab and does not want local SNF placement. Curtis discharged to home, CM spoke with frustrated friend who is a former OT at [facility] (Lydia) and directed her to follow up with Quality/Risk. Patient/Family Education Needs: Review discharge instructions, discuss Ask Me Three. Dariana stated she has a traveling RN staying with her and missed her dog at home, then stated she couldn't return home as she lived alone. Appeared anxious; CM provided supportive listening.
--- NOTE | 2022-11-11 18:36 | PDOC.HHF2F ---
Home Health Referral Home Health Orders Clinical synopsis of why skilled professionals are needed: Ms. Saul is a 72-year-old female with PMH of Metzger's esophagus, hypertension, PACs, asthma, significant osteoporosis treated with Prolia injections as well as history of right femur IM nail in 2005.? Patient reported to the [facility] ED? on 11/27/2022 with chief compliant of left thigh pain.? Patient stated she was walking around her home with a walker when she twisted and had immediate pain in the left leg.? Patient reported left leg discomfort for several months which she has been starting to work-up with her typical orthopedic practice in [place], [place] and they were planning on obtaining an MRI if she continued to have left leg pain.? She was found to have fracture in the setting of osteoporosis similar to classic bisphosphonate fracture.? She was seen by Dr Fink, taken to the OR and her femur was repaired. She did have a shah catheter and when that was removed she had a fever and was checked for UTI.? She tested positive for UTI and was given fosfomycin.? The culture came back positive for Pseudomonas Aeruginosa; she was put on Ciprofloxacin 500 mg twice a day (renal dosing) for 5 days. She had no symptoms and no further fevers.? She was seen by PT and they feel that she is independent and can be discharged to home with home health PT and OT.? Patient is aprehensive and would like to go to a fpc facility.? After discussion with PT and patient, she has agreed it is appropriate to go home and we will have home health PT, OT and she states she has trouble with her medications, therefore we will ask for nursing to see her.? She lives with someone that is an occupaitonal therapist and is available to assist her, she also reports a male nurse is leasing from her and he too is available, as well as friends in the neighborhood.? She is discharged to home with instructions to complete course of Cipro and take aspirin 81 mg twice a day for 30 days.? Follow up with Orthopedics in 2-3 weeks. Medical diagnosis necessitation home health referral: Fractured femur Registered Nurse: Check all that apply Instruct on new or changed medication(s)/assess compliance: Ordered Assess for exacerbation of medical condition, instruct patient/caregivers on signs and symptoms to report for early detection: Ordered Assess wound for signs and symptoms of infection, instruct on wound care and/or provide skilled wound care consisting of: Surgical site left thigh Physical Therapist: Check all that apply Increase strength & endurance for safe mobility at home: Ordered To design/establish home maintenance program: Ordered Fall reduction therapy program for patient with history of frequent falls: Ordered Home safety evaluation and teaching/gait training including stair management (if applicable): Ordered Occupational Therapist: Evaluate and treat for patient unable to perform ADL/IADL/self-care: Ordered Upper extremity strengthening, range and motion: Ordered Fighting Vehicle Infantryman: Assist with community resources: Ordered Home Bound Status Requires the aid of supportive device (check all that apply): Walker Assistance of another person (Describe assistance and medical necessity): Stand by assistance Describe why leaving home would require a considerable and taxing effort: Side effects from pain medication (sedation/drowsiness), Requires frequent rest periods and Safety Concerns: describe (repaired fractured left femur) Encounter Date and Reason: I certify that a FTF encounter for this patient was performed on November 11, 2022 and that such encounter was related to the primary reason the patient requires home health services. The encounter was conducted in the following manner: By me as the certifying physician, CANE FLUME WATCHER, PA or By an inpatient physician, CANE FLUME WATCHER or PA during an inpatient stay who communicated findings to me, Certification And Authentication I certify that I composed the above information based on my clinical judgment relating to this patient's medical condition and, if applicable, clinical findings communicated to me by the NPP or inpatient physician who performed the FTF encounter. Name of Provider that will be monitoring home health services: Delaney Apple
== END 2022-11-11 17:16 | disposition home health service (06) | DRG 482 ==
LOC: ER 07:31 → MS 20:25 → SUR 11-10 15:40 → ER 11-10 15:40 → MS 11-10 15:48
PROVIDERS: Family Medicine; Nurse Practitioner Family; Student in an Organized Health Care Education/Training Program; Admitting Provider Family Medicine; Emergency Provider Physician Assistant; PCP Specialist/Technologist Athletic Trainer; Visit Provider Family Medicine
PROC: 0QS906Z Reposition Left Femoral Shaft with Intramedullary Internal Fixation Device, Open Approach (ICD-10-PCS; CPT 27245; principal; 2022-11-07 13:45)
DX: M84.75 Atypical femoral fracture (principal); J45.909 Unspecified asthma, uncomplicated; K22.70 Barrett's esophagus without dysplasia; I10 Essential (primary) hypertension; G47.00 Insomnia, unspecified; K57.90 Diverticulosis of intestine, part unspecified, without perforation or abscess without bleeding; T45.8X5A Adverse effect of other primarily systemic and hematological agents, initial encounter; Z79.83 Long term (current) use of bisphosphonates; M81.0 Age-related osteoporosis without current pathological fracture
CPT/HCPCS: 27506; 29505; 36415; 51702; 73552; 80048; 80053; 85027; 87077; 87635; 93005; 96361; 96374; 96375; 97110; 97116; 97161; 97530; 99223; 99285; J1650; 71045; 73502; 73560; 73590; 81003; 81015; 83735; 85025; 87086; 87186; 93010; 99222; 99232; 99239; J0131; J0360; J0690; J2405; J2704; J3010; J3360; J3490

== ENCOUNTER 2022-11-27 09:21 | Outpatient (CLI) | payer MEDICARE, BC, SELFPAY ==
--- NOTE | 2022-11-27 08:45 | DI.RAD_ITS ---
Exam(s) XR FEMUR LT EXAM: XR FEMUR LT CLINICAL HISTORY: S/P IM NAIL. TECHNIQUE: 2D digital imaging was performed. COMPARISON: CR,XR XR FEMUR LT from 11/08/2022 CR,XR XR FEMUR RT from 11/08/2022 FINDINGS: Two views: Again noted is a long intramedullary adonis across slightly above mid level transverse fracture of femur . Appearance is unchanged from 11/08/2022. IMPRESSION: DATA REPOSITORY: RADIATION DOSE DELIVERED:
== END 2022-11-27 09:22 | disposition home or self-care (01) ==
LOC: DIORS 09:22
PROVIDERS: PCP Nurse Practitioner Primary Care; Referring Provider Nurse Practitioner Primary Care; Visit Provider Physician Assistant
DX: S72.302D Unspecified fracture of shaft of left femur, subsequent encounter for closed fracture with routine healing (principal); X58.XXXD Exposure to other specified factors, subsequent encounter
CPT/HCPCS: 73552

== ENCOUNTER 2023-01-20 09:52 | Outpatient (CLI) | payer MEDICARE, BC, SELFPAY ==
--- NOTE | 2023-01-20 08:25 | DI.RAD_ITS ---
Exam(s) XR FEMUR LT EXAM: XR FEMUR LT CLINICAL HISTORY: f/u fx. TECHNIQUE: 2D digital imaging was performed. Four images were obtained. AP and lateral views were o btained. COMPARISON: CR XR FEMUR LT from 11/27/2022 FINDINGS: BONES: There are stable post operative changes present. No new fracture or dislocation. There has be en no change in alignment of the fracture involving the femoral shaft. There has developed some call us formation about the fracture consistent with interval healing. JOINTS: The joint spaces are well maintained. SOFT TISSUE: Normal. IMPRESSION: Healing left femoral fracture. DATA REPOSITORY: RADIATION DOSE DELIVERED:
== END 2023-01-20 09:53 | disposition home or self-care (01) ==
LOC: DIORS 09:52
PROVIDERS: PCP Nurse Practitioner Primary Care; Referring Provider Nurse Practitioner Primary Care; Visit Provider Student in an Organized Health Care Education/Training Program
DX: S72.302D Unspecified fracture of shaft of left femur, subsequent encounter for closed fracture with routine healing (principal); X58.XXXD Exposure to other specified factors, subsequent encounter
CPT/HCPCS: 73552

== ENCOUNTER 2023-03-17 10:40 | Outpatient (CLI) | payer MEDICARE, BC, SELFPAY ==
--- NOTE | 2023-03-17 09:00 | DI.RAD_ITS ---
Exam(s) XR FEMUR LT EXAM: XR FEMUR LT CLINICAL HISTORY: left femur fx f/u. TECHNIQUE: 2D digital imaging was performed. Four images were obtained. AP and lateral views were o btained. COMPARISON: CR XR FEMUR LT from 01/20/2023 FINDINGS: BONES: There are stable post operative changes present. No new fracture or dislocation. There is inc reased callus formation about the fracture site suggesting some interval healing. JOINTS: The joint spaces are well maintained. SOFT TISSUE: Normal. IMPRESSION: Stable alignment of the left femoral fracture. DATA REPOSITORY: RADIATION DOSE DELIVERED:
== END 2023-03-17 10:41 | disposition home or self-care (01) ==
LOC: DIORS 10:40
PROVIDERS: PCP Nurse Practitioner Primary Care; Referring Provider Nurse Practitioner Primary Care; Visit Provider Student in an Organized Health Care Education/Training Program
DX: M84.75 Atypical femoral fracture (principal); T45.8X5D Adverse effect of other primarily systemic and hematological agents, subsequent encounter; Z79.83 Long term (current) use of bisphosphonates
CPT/HCPCS: 73552; 99213

== ENCOUNTER 2023-05-26 11:45 | Outpatient (CLI) | payer MEDICARE, BC, SELFPAY ==
--- NOTE | 2023-05-26 11:30 | DI.RAD_ITS ---
Exam(s) XR FEMUR LT EXAM: XR FEMUR LT CLINICAL HISTORY: femur f/u. TECHNIQUE: 2D digital imaging was performed. COMPARISON: CR XR FEMUR LT from 03/17/2023 FINDINGS: Four views. N noted is a long intramedullary adonis across the healing fracture site at the junction of the proximal and mid thirds of femur. The appearance at the fracture site exhibits minimal change. Slight furth er callus formation but fracture line still evident. No radiographic evidence of loosening nor osteo myelitis. No hip joint space narrowing evident. Some degenerative change in the knee is noted. IMPRESSION: Stable appearance of the femur fracture site. DATA REPOSITORY: RADIATION DOSE DELIVERED:
== END 2023-05-26 11:46 | disposition home or self-care (01) ==
LOC: DIORS 11:45
PROVIDERS: PCP Nurse Practitioner Primary Care; Referring Provider Nurse Practitioner Primary Care; Visit Provider Student in an Organized Health Care Education/Training Program
DX: S72.302D Unspecified fracture of shaft of left femur, subsequent encounter for closed fracture with routine healing (principal); T45.8X5D Adverse effect of other primarily systemic and hematological agents, subsequent encounter
CPT/HCPCS: 73552; 99213